=== PATIENT | male | born 1960 | race Caucasian/White ===

== ENCOUNTER → 2016-09-15 | Outpatient (REF) ==
--- NOTE | 2016-09-15 10:54 | REP ---
PARTIAL LUMBAR SPINE, THREE VIEWS: HISTORY: Degenerative disc disease. COMPARISON: 12/29/2011. There is no acute fracture. The L2-3 and L3-4 intervertebral discs are decreased in height. Vacuum phenomenon is present at the L2-3 level. These findings are consistent with disc degeneration. Osteophytes are present on L1-4. There are 3 mm of retrolisthesis of L2 on 3 and L3 on 4. There is scoliosis convex to the right. IMPRESSION: Degenerative change as described above. Signed by Kj Mireles MD 09/15/2016 10:56 A
== END ==
LOC: M SMT 10:12
PROVIDERS: ATTEND Internal Medicine
DX: M51.36 Other intervertebral disc degeneration, lumbar region (principal)

== ENCOUNTER → 2019-04-18 | Outpatient (CLI) | payer OTHER ==
--- NOTE | 2019-04-18 17:14 | REPVR ---
PROCEDURE INFORMATION: Exam: CT Maxillofacial Without Contrast, Sinus Exam date and time: 04/18/2019 4:39 PM Age: 58 years old Clinical indication: Sinusitis; Chronic; Additional info: J32.9-chronic sinusitis unspecified TECHNIQUE: Imaging protocol: CT Maxillofacial without contrast. Focus on the sinuses. Radiation optimization: All CT scans at this facility use at least one of these dose optimization techniques: automated exposure control; mA and/or kV adjustment per patient size (includes targeted exams where dose is matched to clinical indication); or iterative reconstruction. COMPARISON: No relevant prior studies available. FINDINGS: Frontal sinuses: The frontal sinuses are clear. The frontal nasal recesses are clear. Ethmoid air cells: There is minimal ethmoid sinus mucosal thickening. No air-fluid levels. Sphenoid sinuses: There is minimal mucosal thickening in the right sphenoid sinus. No air-fluid levels. Maxillary sinuses: There is mild mucosal thickening in the maxillary sinuses. Mucosal thickening involving the uncinate processes narrow the maxillary ostia bilaterally. No air-fluid levels. Orbits: Normal: Nasopharynx: The adenoids are noted to be moderately hypertrophic. Nasal cavity/Septum: The bony nasal septum is slightly deviated to the left with a nasal spur projecting slightly further to the left. Soft tissues: Unremarkable. Bones/joints: Unremarkable. IMPRESSION: 1. Mild mucosal thickening described above consistent with chronic sinusitis. 2. No evidence of acute sinusitis. Electronically signed by: Chacorta Muñoz On 04/18/2019 17:13:52 PM
== END ==
LOC: M RAD 16:07
PROVIDERS: ATTEND Family Medicine
DX: J32.9 Chronic sinusitis, unspecified (principal)

== ENCOUNTER → 2019-05-29 | Outpatient (CLI) | payer OTHER ==
--- NOTE | 2019-05-29 10:51 | REP ---
BILATERAL LOWER EXTREMITY DUPLEX DOPPLER ARTERIAL ULTRASOUND: Real-time ultrasound evaluation and duplex Doppler interrogation of bilateral lower extremity arterial systems is performed. There is no evidence of hemodynamically significant stenosis bilaterally in the lower extremity arterial systems. There are diffuse triphasic and biphasic waveforms identified with normal flow velocities. DEONTE bilaterally is 0.9. PEAK SYSTOLIC VELOCITY RIGHT LEFT Common femoral artery 103.0 cm/s 170.0 cm/s Profunda 103.0 70.1 Proximal SFA 99.7 104.0 Superficial femoral artery mid 87.2 120.0 Superficial femoral artery distal 62.6 89.2 Popliteal 49.5 62.0 Proximal anterior tibial artery 53.2 69.0 Tibioperoneal trunk 60.0 46.1 Proximal posterior tibial artery 48.7 52.8 Distal posterior tibial artery 85.1 75.7 Distal anterior tibial artery 53.3 59.8 IMPRESSION: No hemodynamically significant stenosis of bilateral lower extremity arterial systems. Electronically Signed by Killian Bateman MD 05/29/2019 03:15 P
== END ==
LOC: M RAD 09:15
PROVIDERS: ATTEND Physician Assistant
DX: I73.9 Peripheral vascular disease, unspecified (principal)

== ENCOUNTER → 2020-02-20 | Outpatient (CLI) | payer OTHER | LOC: M RAD 06:43 | PROVIDERS: ATTEND Internal Medicine Hematology & Oncology | DX: Z53.9 Procedure and treatment not carried out, unspecified reason (principal); M47.26 Other spondylosis with radiculopathy, lumbar region ==

== ENCOUNTER → 2020-03-08 | Outpatient (CLI) | payer OTHER ==
--- NOTE | 2020-03-08 11:43 | REP ---
INDICATION: SPOLNDYLOSIS WITH RADICULOPATHY. COMPARISON: Comparison lumbar spine radiographs September 15, 2016.. TECHNIQUE: Sagittal and axial T1 and T2-weighted scans are acquired in the usual fashion with and without fat saturation. Sequences include spin echo, turbo spin-echo, and STIR imaging sequences. FINDINGS: A normal caliber aorta is seen. The right kidney is not visible. No other extra vertebral abnormality is observed. Cortical and medullary bone signal intensity are normal. There are some reactive marrow changes on either side of the degenerated L2-3 disc. There is a degenerative retrolisthesis of L2 posterior with respect to L3, 3.6 mm. There is diffuse disc bulging and some osteophytic ridging at the L2-3 disc which indents the ventral margin of the thecal sac. No spinal stenosis is seen. No neural foraminal encroachment. The L1-2 disc shows degenerative narrowing and minimal diffuse disc bulging. No other finding at L1-2. At L3-4 there is degenerative disc narrowing. Minimal diffuse disc bulging is present. No spinal stenosis or neural foraminal narrowing is seen. The L4-5 disc level is remarkable only for mild facet hypertrophy bilaterally. No neural foraminal narrowing due, disc herniation, or spinal stenosis is seen. At L5-S1, there is also mild osteoarthritic facet hypertrophy. No other finding is seen. IMPRESSION: The right kidney is surgically absent. There is degenerative disc disease most pronounced at L2-3 where there is a 3.6 mm degenerative retrolisthesis. Osteoarthritic facet changes are noted at L4-5 and L5-S1 bilaterally. Otherwise negative. <Electronically signed by Eris Kern > 03/08/20 [id number]
== END ==
LOC: M RAD 10:20
PROVIDERS: ATTEND Internal Medicine Hematology & Oncology
DX: M47.26 Other spondylosis with radiculopathy, lumbar region (principal); M51.16 Intervertebral disc disorders with radiculopathy, lumbar region; Z90.5 Acquired absence of kidney

== ENCOUNTER → 2020-06-03 | Outpatient (CLI) | payer OTHER ==
--- NOTE | 2020-06-08 05:43 | ECWPNPC ---
PATIENT NAME: ROMANA CANTU : 1960 GENDER: MALE VISIT DATE: 06/03/2020 DISCHARGE DATE: 06/03/20 1348 VISIT LOCKED DATE TIME: PHYSICIAN: RAPHAEL GRANADO RESOURCE: RAPHAEL GRANADO REASON FOR APPOINTMENT 1. LOW BACK PAIN HISTORY OF PRESENT ILLNESS DEPRESSION SCREENING: PHQ-2 (2015 EDITION) LITTLE INTEREST OR PLEASURE IN DOING THINGS?NOT AT ALL FEELING DOWN, DEPRESSED, OR HOPELESS?NOT AT ALL TOTAL SCORE0 GENERAL: 59-YEAR-OLD GENTLEMAN BEING REFERRED BY [facility] FOR EVALUATION OF CHRONIC LOW BACK PAIN REFRACTORY TO TREATMENT. HE WAS SENT HERE TO BE EVALUATED FOR INJECTIONS IN HIS LOWER BACK. STATES THAT APPROXIMATELY 10 YEARS AGO OR 2008 OR 2009 HE HAD STEROID INJECTIONS INTO HIS LOWER BACK AND HAD SIGNIFICANT SWELLING WHERE THEY INJECTED AND STATES HE HAD A HEART ATTACK. INFORMED HIM THAT IN ORDER TO CONSIDER INTERVENTIONAL THERAPY HE WAS REFERRED FOR WE WOULD NEED AN ALLERGY EVALUATION FOR STEROID MEDICINE WELL LOCAL NUMBING PRODUCTS THAT WE USE FOR INJECTIONS. HE WOULD ALSO NEED TO STOP PLAVIX FOR 7 DAYS BEFORE PROCEDURE THAT WOULD REQUIRE A MEDICAL CLEARANCE EVERY TIME HE WOULD DO INJECTION THERAPY. STATES THAT HE HAD CHIROPRACTIC INTERVENTION WITHOUT IMPROVEMENT. STATES HE HAD PHYSICAL THERAPY WITHOUT IMPROVEMENT. REPORTING SEVERE DAILY LOW BACK PAIN AND SHOOTING PAINS IN HIS LEGS. STATES HE HAD A STENT FOR CIRCULATION PLACED IN HIS RIGHT LEG. ALSO REPORTS THAT THAT HE HAS A STENT IN HIS HEART. HAS ONE KIDNEY. DENIES BOWEL OR BLADDER INCONTINENCE. DENIES SADDLE PARESTHESIAS. MRI OF LUMBAR SPINE DATED 2017 IS REVIEWED. RECENT X-RAY IMAGING IS REVIEWED. PATIENT STATES THAT HE DOES NOT WANT TO USE THE CO IN [place]. WE TALKED ABOUT THE POTENTIAL RISKS INVOLVED WITH INJECTION THERAPY. OUR RECOMMENDATION WOULD BE FOR THE CO TO EVALUATE FOR ALLERGIES USED DURING INTERVENTIONAL THERAPY I.E. LOCAL NUMBING AGENT AND STEROID MEDICATION. - - -. FALL RISK SCREENING: SCREENING FALL LAST YEAR DID NOT GO TO THE ER. JUST STANDING CAN CASUING HIS LEG TO GIVE OUT. PAIN SCREENING: PATIENT HAS A COMPLAINT OF ACUTE OR CHRONIC PAIN :YES LOCATION OF PAIN:LOW BACK INTENSITY OF PAIN (SCALE OF 1 TO 10):8 WHAT DOES YOUR PAIN FEEL LIKE:STABBING, THROBBING, SHOOTING DURATION:CONTINOUS, CONSTANT, ALL DAY PAIN IS INCREASED BY:ACTIVITIES, PROLONGED STANDING PAIN IS DECREASED BY:OTHERS HEAT NURSING NOTE: - - -. PAIN CENTER INTAKE QUESTIONS: DO YOU HAVE A HISTORY OF MRSA? :NO DO YOU TAKE A BLOOD THINNERS? :NO DO YOU HAVE ANY BLEEDING DISORDERS? :NO BLEED A LITTEL WHEN HE CUT HIM SELF.. TAKES A LONG TIME TO HEAL ANY NEW NUMBNESS OR WEAKNESS IN YOUR LEGS OR ARMS? :YES WHEN SLEEPING THERE IS NUMBESS IN ARMS AND LEGS ANY PACEMAKER,DEFIBRILLATOR, OR DORSAL COLUMN STIMULATOR? :NO DO YOU HAVE ANY RASHES OR OPEN SORES? :NO ARE YOU ALLERGIC TO IV DYE? :NO ARE YOU DIABETIC? :NO ANY NEW PROBLEMS WITH YOUR MEDICATIONS? :NO HAVE YOU RECEIVED A VACCINE IN THE PAST 30 DAYS? :NO DO YOU PLAN TO RECEIVE A VACCINE IN THE NEXT 21 DAYS? :YES IF SO WHAT VACCINE AND WHEN? [facility] COVID 06/15/2020 DO YOU NEED ANY PRESCRIPTION? :NO DO YOU TAKE ANY IMMUNOSUPPRESSIVE MEDICATIONS? :NO CURRENT MEDICATIONS TAKING ATENOLOL 50 MG TABLET 1 TABLET ORALLY ONCE A DAY TAKING ATORVASTATIN CALCIUM 80 MG TABLET 1 TABLET ORALLY ONCE A DAY TAKING BUDESONIDE-FORMOTEROL FUMARATE 80-4.5 MCG/ACT AEROSOL 2 PUFFS INHALATION ONCE A DAY TAKING CLOPIDOGREL BISULFATE 75 MG TABLET 1 TABLET ORALLY ONCE A DAY TAKING CYCLOSPORINE 0.05 % EMULSION 1 DROP INTO AFFECTED EYE OPHTHALMIC TWICE A DAY TAKING DICLOFENAC SODIUM 1 % GEL DIRECTED EXTERNALLY TAKING DULOXETINE HCL 60 MG CAPSULE DELAYED RELEASE PARTICLES 1 CAPSULE ORALLY ONCE A DAY TAKING FLUTICASONE PROPIONATE 50 MCG/ACT SUSPENSION 1 SPRAY IN EACH NOSTRIL NASALLY ONCE A DAY TAKING GABAPENTIN 600 MG TABLET 1 TABLET ORALLY ONCE A DAY TAKING HYDROCODONE-ACETAMINOPHEN 5-325 MG TABLET 1 TABLET NEEDED ORALLY EVERY 6 HRS TAKING LEVOTHYROXINE SODIUM 150 MCG TABLET 1 TABLET IN THE MORNING ON AN EMPTY STOMACH ORALLY ONCE A DAY TAKING LISINOPRIL 30 MG TABLET 1 TABLET ORALLY ONCE A DAY TAKING MAGNESIUM 400 MG CAPSULE DIRECTED ORALLY TAKING MELOXICAM 15 MG TABLET 1 TABLET ORALLY ONCE A DAY TAKING NICOTINE POLACRILEX 2 MG GUM 1 PIECE FOR 30 MINUTE NEEDED MOUTH/THROAT 24 TIME(S) A DAY TAKING PANTOPRAZOLE SODIUM 40 MG TABLET DELAYED RELEASE 1 TABLET ORALLY ONCE A DAY TAKING RIBOFLAVIN 100 MG TABLET 1 TABLET ORALLY ONCE A DAY TAKING SILDENAFIL CITRATE 100 MG TABLET 1 TABLET NEEDED ORALLY ONCE A DAY TAKING TIZANIDINE HCL 2 MG TABLET 1 TABLET NEEDED ORALLY THREE TIMES A DAY TAKING KETOTIFEN FUMARATE 0.025 % SOLUTION 1 DROP INTO AFFECTED EYE OPHTHALMIC TWICE A DAY NOT-TAKING LEVOTHYROXINE SODIUM 175 MCG TABLET 1 TABLET IN THE MORNING ON AN EMPTY STOMACH ORALLY ONCE A DAY NOT-TAKING TRAZODONE HCL 100 MG TABLET 1 TABLET AT BEDTIME ORALLY ONCE A DAY NOT-TAKING TROSPIUM CHLORIDE 20 MG TABLET 1 TABLET AT BEDTIME ON AN EMPTY STOMACH ORALLY ONCE A DAY MEDICATION LIST REVIEWED AND RECONCILED WITH THE PATIENT PAST MEDICAL HISTORY JOINT PAIN IN LEFT LEG CEVICALGIA HYPERLIPIDEMIA GENERALIZED ANXIETY LOW BACK PAIN CORONARY ARTERY DISEASE EDENTULOUS HYPOTHYROIDISM NEPHRECTOMY SCOLIOSIS CYST RENAL THROMBOCYTOPENIA SLEEP DISORDER HYPERTENSION DYSPENA HEADACHE ANXIETY POLYARTHRALGIA CHEST PAIN ANEMIA 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 GASTROESOPHAGEAL REFLUX DISEASE CHRONIC OBSTRUCTIVE PULMONARY DIEASE DEPRESSION ALLERGIES CHANTIX: NAUSEA/VOMITING SURGICAL HISTORY S/P CARDIC CATH AND STENTING 2006 COLONOSCOPY 2016 LEFT OPEN PARTIAL NEPHRECTOMY 2014 RIGHT NEPHRECTOMY AGE 1 RIGHT ILAC ARTERY STENTING 2019 FLEXIBLE RHINOSCOPY 2019 FAMILY HISTORY FATHER: MOTHER: SIBLINGS: ALIVE SON(S): ALIVE 1 BROTHER(S) - HEALTHY. 1 SON(S) , 3 DAUGHTER(S) - HEALTHY. SOCIAL HISTORY GENERAL: TOBACCO USE ARE YOU A:CURRENT SMOKER ARE YOU INTERESTED IN QUITTING?NOT READY TO QUIT COUNSELED THE PATIENT ON SMOKING EFFECTS, EDUCATION [id number]/05/2021 HOW MANY CIGARETTES A DAY DO YOU SMOKE?5 OR LESS LATEX QUESTIONNAIRE LATEX ALLERGY : HAVE YOU EVER DEVELOPED ANY TYPE OF REACTION AFTER HANDLING LATEX PRODUCTS SUCH RUBBER GLOVES, CONDOMS, DIAPHRAGMS, BALLOONS, SOCKS, OR UNDERWEAR?NO LATEX ALLERGY : HAVE YOU EVER DEVELOPED ANY TYPE OF REACTION DURING OR AFTER DENTAL APPOINTMENT, VAGINAL/RECTAL EXAMINATION, SURGICAL PROCEDURE, OR ANY OTHER EXPOSURE?NO LATEX RISK : HAVE YOU EVER HAD ANY DIFFICULTY BREATHING OR HIVES AFTER EATING OR HANDLING ANY FRUITS, OR VEGETABLES; SUCH KIWI, BANANAS, STONE FRUITS, OR CHESTNUTSNO LATEX RISK : DO YOU HAVE A PREVIOUS PERSONAL HISTORY OF MORE THAN NINE SURGERIES, SPINA BIFIDA, OR REPEATED CATHERIZATIONS? NO LATEX RISK : ARE YOU FREQUENTLY EXPOSED TO LATEX PRODUCTS IN YOUR OCCUPATION?NO DATE ASKED : 06/03/2020 ALCOHOL USE: NO. RECREATIONAL DRUG USE DRUG USE?NO LANGUAGE LANGUAGES SPOKEN:MAORI LEARNING BARRIERS / SPECIAL NEEDS CHANGE FROM LAST VISIT?YES BARRIERS TO LEARNING?NO HEARING IMPAIRED?YES :HEARING AIDES VISION IMPAIRED?YES :CORRECTIVE LENSES COGNITIVELY IMPAIRED?NO READINESS TO LEARN?YES LEARNING PREFERENCES?NO LEARNING CAPABILITIES PRESENT?YES EMOTIONAL BARRIERS?NO SPECIAL DEVICES?YES :CANE, WALKER NEEDED ANALYTICAL CONSULTANT NEEDED?NO DOMESTIC VIOLENCE DO YOU FEEL SAFE IN YOUR ENVIRONMENT?YES HOSPITALIZATION/MAJOR DIAGNOSTIC PROCEDURE NO HOSPITALIZATION HISTORY. REVIEW OF SYSTEMS CONSTITUTIONAL: ANY RECENT FEVER NO . CHILLS NO . WEIGHT CHANGE OF UNKNOWN REASONS NO . GASTROENTEROLOGY: NEW UNEXPLAINABLE CHANGES IN BOWEL CONTROL NO . CONSTIPATION NO . GENITOURINARY: ANY NEW CHANGE IN BLADDER CONTROL? NO . NEUROLOGY: NEW ONSET DIZZINESS OR NEUROLOGICAL CHANGES NOT MENTIONED NO . NEW NUMBNESS OR PAIN PATTERNS NOT MENTIONED AND PERTINENT TO TODAY'S VISIT NO . CARDIOLOGY: NEW CHEST PRESSURE NO . PATIENT DENIES NO . RESPIRATORY: UNEXPLAINABLE COUGH NO . NEW SHORTNESS OF BREATH NO . VITAL SIGNS WT 187 LBS, HT 5'9, BMI 36.52 INDEX, BP 118/68 MM HG, HR 55 /MIN, RR 18 /MIN, TEMP 97.2 F, OXYGEN SAT % 97%, SAFE IN ENV? (Y/N) YEST.JR LITTLE. EXAMINATION GENERAL EXAMINATION: GENERALNO ACUTE DISTRESS, WELL NOURISHED AND HYDRATED. PSYCHAPPROPRIATE MOOD AND AFFECT . NECK:NO LYMPHADENOPATHY, SUPPLE. LUNGS:CLEAR TO AUSCULTATION BILATERALLY, NO WHEEZES, RHONCHI, RALES. HEART:NO MURMURS, REGULAR RATE AND RHYTHM. ABDOMEN: OBESE,PROTUBERANT. MUSCULOSKELETAL: MUSCLE STRENGTH TESTING 5/5 BILATERAL UPPER/LOWER EXTREMITIES. LUMBAR:TENDERNESS THROUGHOUT ENTIRE SPINE AND PARASPINALS . ASSESSMENTS OTHER CHRONIC PAIN - G89.29 LUMBAGO WITH SCIATICA, RIGHT SIDE - M54.41 LUMBAGO WITH SCIATICA, LEFT SIDE - M54.42 TREATMENT OTHERS NOTES: RECOMMENDATIONS TO [facility]: CONTINUE CURRENT CHRONIC PAIN MEDICATION. CONSIDER ALLERGY CONSULTATION IF PATIENT WOULD LIKE TO PURSUE INTERVENTIONAL THERAPY TO INCLUDE STEROID INJECTIONS. PATIENT WILL CALL IF FOLLOW-UP IS NECESSARY. PROCEDURE CODES FA211 ESTABILISHED PATIENT [facility] CHARGE DISPOSITION & COMMUNICATION FOLLOW UP PATIENT WILL CALL IF FOLLOW-UP NECESSARY (REASON: RECOMMENDATIONS TO [facility] WERE MADE) ELECTRONICALLY SIGNED BY YEVGENIY DUNNE ON 06/07/2020 AT 08:41 AM EDT DISCLAIMER : THIS IS A VISIT SUMMARY EXTRACTED FROM THE [employer] CHART. IT IS NOT A COPY OF THE [employer] PROGRESS NOTE. MYRIAMD
== END ==
LOC: M PAIN 13:00
PROVIDERS: ATTEND Nurse Practitioner Family
DX: G89.29 Other chronic pain (principal); M54.41 Lumbago with sciatica, right side; M54.42 Lumbago with sciatica, left side; E78.5 Hyperlipidemia, unspecified; F41.1 Generalized anxiety disorder; I25.10 Atherosclerotic heart disease of native coronary artery without angina pectoris; E03.9 Hypothyroidism, unspecified; I10 Essential (primary) hypertension; D64.9 Anemia, unspecified; K21.9 Gastro-esophageal reflux disease without esophagitis; J44.9 Chronic obstructive pulmonary disease, unspecified; I73.9 Peripheral vascular disease, unspecified; F32.9 Major depressive disorder, single episode, unspecified; F17.210 Nicotine dependence, cigarettes, uncomplicated; Z79.891 Long term (current) use of opiate analgesic; Z79.899 Other long term (current) drug therapy; Z79.02 Long term (current) use of antithrombotics/antiplatelets

== ENCOUNTER → 2020-07-15 | Outpatient (CLI) | payer OTHER ==
--- NOTE | 2020-07-16 03:07 | REP ---
INDICATION: NICOTINE DEPENDENCE COMPARISON: 07/11/2018 TECHNIQUE: Axial noncontrast images from the thoracic inlet to the upper abdomen using low-dose lung screening technique (LDCT). FINDINGS: The lung reece are well aerated and demonstrate chronic peribronchial thickening primarily involving the right middle lobe and lingula along with small subtle areas of somewhat nodular airspace disease involving the lingula, medial basilar right upper lobe, and to a lesser extent the remainder of the lung reece. Small nodular opacity within the medial right upper lobe measure up to approximately 9.5 mm. While these findings likely represent acute/resolving infectious process, less likely malignant pathology cannot be excluded. No effusion. No pneumothorax. Tracheobronchial tree is patent. Few mildly prominent mediastinal lymph nodes along with thyromegaly suggested. IMPRESSION: Relatively new findings as described above. Findings likely favor an acute or resolving infectious process and less likely malignancy. However, short-term 3 month contrast-enhanced chest CT should be considered for further investigation. <Electronically signed by Kwabena Martinez > 07/16/20 0300
== END ==
LOC: M RAD 11:03
PROVIDERS: ATTEND Physician Assistant
DX: Z12.2 Encounter for screening for malignant neoplasm of respiratory organs (principal); F17.210 Nicotine dependence, cigarettes, uncomplicated; R91.8 Other nonspecific abnormal finding of lung field

== ENCOUNTER → 2020-08-26 | Outpatient (CLI) | payer OTHER ==
--- NOTE | 2020-08-27 11:50 | REP ---
INDICATION: LUNG NODULE. COMPARISON: Comparison chest CT studies are from July 11, 2018 and July 15, 2020.. TECHNIQUE: Forty-nine minutes following the intravenous injection of a 8.66 mCi dose of F-18 FDG, three-dimensional PET scintigraphy is acquired from the skull base to the proximal thighs. Triplanar noncontrast CT scanning is acquired through the same anatomic range for attenuation correction, and image registration with scan parameters optimized to minimize radiation exposure to the patient. PET scintigraphy and CT datasets were fused and displayed on a workstation with multiplanar and projection display capability. FINDINGS: There is diffuse symmetrical uptake in the thyroid gland. The thyroid gland appears symmetrically enlarged. Findings are compatible with thyroiditis. Maximum standard uptake value 4.55. There is no abnormal pulmonary parenchymal hypermetabolic uptake. The nodular density seen in the right upper lobe anteriorly have improved considered bili morphologically. No abnormal uptake is seen. This is compatible with inflammatory changes. There is no observable significant pulmonary nodule or abnormal pulmonary parenchymal uptake. No hilar or mediastinal hypermetabolic uptake is seen. No pleural uptake is appreciated. In the abdomen and pelvis, normal hepatic, splenic, gastrointestinal, and genitourinary FDG accumulation is appreciated. No abnormal hypermetabolic uptake is seen in the abdomen or pelvis. The right kidney is absent. No abnormal hypermetabolic uptake is seen in the abdomen or pelvis. There is a right-sided external iliac arterial stent. IMPRESSION: No abnormal hypermetabolic uptake seen in the chest. The recently identified right upper lobe nodules have improved significantly consistent with inflammatory change. There is diffuse symmetric uptake in the enlarged thyroid gland consistent with thyroiditis. Otherwise negative. <Electronically signed by Eris Kern > 08/27/20 [id number]
== END ==
LOC: M PLARAD 14:34
PROVIDERS: ATTEND Physician Assistant
DX: R91.1 Solitary pulmonary nodule (principal)
CPT/HCPCS: 78815; A9552

== ENCOUNTER → 2020-09-04 | Outpatient (CLI) | payer OTHER ==
--- NOTE | 2020-09-06 00:06 | ECWPNPC ---
PATIENT NAME: ROMANA CANTU : 1960 GENDER: MALE VISIT DATE: 09/04/2020 DISCHARGE DATE: 09/04/20 1121 VISIT LOCKED DATE TIME: PHYSICIAN: RAPHAEL GRANADO RESOURCE: RAPHAEL GRANADO REASON FOR APPOINTMENT 1. LOW BACK PAIN HISTORY OF PRESENT ILLNESS GENERAL: HERE FOR FOLLOW-UP OF CHRONIC LOW BACK PAIN WITH A HISTORY OF MULTIPLE COMORBIDITIES. CURRENTLY BEING EVALUATED BY PULMONARY FOR" A SPOT ON HIS LUNG". AT HIS INITIAL VISIT 3 MONTHS AGO I RECOMMENDED THAT HE REQUEST [place] FROM [place] DUE TO HIS REPORT OF SEVERE LOCAL REACTION AFTER [facility]ID[facility] ST[facility] [facility] [facility] [place]. PATIENT IS INTERESTED IN DORSAL COLUMN STIMULATOR TRIAL. I DID GIVE HIM INFORMATION ON THIS TODAY BUT TOLD HIM THAT DR. TELLES WOULD WANT TO TRY SOME PROCEDURES FIRST BEFORE CONSIDERING A DORSAL COLUMN STIMULATOR. I WOULD BE WILLING TO SEND HIM FOR ALLERGY TESTING IN REGARDS TO LOCAL ANESTHETIC AND STEROIDS DUE TO HIS LOCAL REACTION BUT I AM NOT SURE ON WHAT THEY USED IN THE PROCEDURE. THEREFORE WE WILL HAVE HIM SIGN A RECORDS RELEASE TODAY AND HOPEFULLY GET SOME INFORMATION. AFTER THAT WE COULD CONSIDER SENDING HIM FOR ALLERGY EVALUATION. -. FALL RISK SCREENING: SCREENING 4 FALLS THIS YEAR DID NOT GO THE ER , NO MAJOR INJURIES. PAIN SCREENING: PATIENT HAS A COMPLAINT OF ACUTE OR CHRONIC PAIN :YES LOCATION OF PAIN:LOW BACK INTENSITY OF PAIN (SCALE OF 1 TO 10):9 WHAT DOES YOUR PAIN FEEL LIKE:ACHING, BURNING, THROBBING, SORE, SHOOTING DURATION:INTERMITTENT PAIN IS INCREASED BY:ACTIVITIES PAIN IS DECREASED BY:OTHERS HEATING PAD NURSING NOTE: -. PAIN CENTER INTAKE QUESTIONS: DO YOU HAVE A HISTORY OF MRSA? :NO DO YOU TAKE A BLOOD THINNERS? :NO DO YOU HAVE ANY BLEEDING DISORDERS? :NO BLEED A LITTEL WHEN HE CUT HIM SELF.. TAKES A LONG TIME TO HEAL ANY NEW NUMBNESS OR WEAKNESS IN YOUR LEGS OR ARMS? :YES WHEN SLEEPING THERE IS NUMBESS IN ARMS AND LEGS ANY PACEMAKER,DEFIBRILLATOR, OR DORSAL COLUMN STIMULATOR? :NO DO YOU HAVE ANY RASHES OR OPEN SORES? :NO ARE YOU ALLERGIC TO IV DYE? :NO ARE YOU DIABETIC? :NO ANY NEW PROBLEMS WITH YOUR MEDICATIONS? :NO HAVE YOU RECEIVED A VACCINE IN THE PAST 30 DAYS? :NO DO YOU PLAN TO RECEIVE A VACCINE IN THE NEXT 21 DAYS? :YES IF SO WHAT VACCINE AND WHEN? 1ST COVID 06/15/2020 DO YOU NEED ANY PRESCRIPTION? :NO DO YOU TAKE ANY IMMUNOSUPPRESSIVE MEDICATIONS? :NO CURRENT MEDICATIONS TAKING ATENOLOL 50 MG TABLET 1 TABLET ORALLY ONCE A DAY TAKING ATORVASTATIN CALCIUM 80 MG TABLET 1 TABLET ORALLY ONCE A DAY TAKING BUDESONIDE-FORMOTEROL FUMARATE 80-4.5 MCG/ACT AEROSOL 2 PUFFS INHALATION ONCE A DAY TAKING CLOPIDOGREL BISULFATE 75 MG TABLET 1 TABLET ORALLY ONCE A DAY TAKING CYCLOSPORINE 0.05 % EMULSION 1 DROP INTO AFFECTED EYE OPHTHALMIC TWICE A DAY TAKING DICLOFENAC SODIUM 1 % GEL DIRECTED EXTERNALLY TAKING DULOXETINE HCL 60 MG CAPSULE DELAYED RELEASE PARTICLES 1 CAPSULE ORALLY ONCE A DAY TAKING FLUTICASONE PROPIONATE 50 MCG/ACT SUSPENSION 1 SPRAY IN EACH NOSTRIL NASALLY ONCE A DAY TAKING GABAPENTIN 600 MG TABLET 1 TABLET ORALLY ONCE A DAY TAKING HYDROCODONE-ACETAMINOPHEN 5-325 MG TABLET 1 TABLET NEEDED ORALLY EVERY 6 HRS TAKING LEVOTHYROXINE SODIUM 150 MCG TABLET 1 TABLET IN THE MORNING ON AN EMPTY STOMACH ORALLY ONCE A DAY TAKING LISINOPRIL 30 MG TABLET 1 TABLET ORALLY ONCE A DAY TAKING MAGNESIUM 400 MG CAPSULE DIRECTED ORALLY TAKING MELOXICAM 15 MG TABLET 1 TABLET ORALLY ONCE A DAY TAKING NICOTINE POLACRILEX 2 MG GUM 1 PIECE FOR 30 MINUTE NEEDED MOUTH/THROAT 24 TIME(S) A DAY TAKING PANTOPRAZOLE SODIUM 40 MG TABLET DELAYED RELEASE 1 TABLET ORALLY ONCE A DAY TAKING RIBOFLAVIN 100 MG TABLET 1 TABLET ORALLY ONCE A DAY TAKING SILDENAFIL CITRATE 100 MG TABLET 1 TABLET NEEDED ORALLY ONCE A DAY TAKING TIZANIDINE HCL 2 MG TABLET 1 TABLET NEEDED ORALLY THREE TIMES A DAY TAKING KETOTIFEN FUMARATE 0.025 % SOLUTION 1 DROP INTO AFFECTED EYE OPHTHALMIC TWICE A DAY TAKING ASPIR-LOW 81 MG TABLET DELAYED RELEASE 1 TABLET ORALLY ONCE A DAY NOT-TAKING LEVOTHYROXINE SODIUM 175 MCG TABLET 1 TABLET IN THE MORNING ON AN EMPTY STOMACH ORALLY ONCE A DAY NOT-TAKING TRAZODONE HCL 100 MG TABLET 1 TABLET AT BEDTIME ORALLY ONCE A DAY NOT-TAKING TROSPIUM CHLORIDE 20 MG TABLET 1 TABLET AT BEDTIME ON AN EMPTY STOMACH ORALLY ONCE A DAY MEDICATION LIST REVIEWED AND RECONCILED WITH THE PATIENT PAST MEDICAL HISTORY JOINT PAIN IN LEFT LEG CEVICALGIA HYPERLIPIDEMIA GENERALIZED ANXIETY LOW BACK PAIN CORONARY ARTERY DISEASE EDENTULOUS HYPOTHYROIDISM NEPHRECTOMY SCOLIOSIS CYST RENAL THROMBOCYTOPENIA SLEEP DISORDER HYPERTENSION DYSPENA HEADACHE ANXIETY POLYARTHRALGIA CHEST PAIN ANEMIA 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 GASTROESOPHAGEAL REFLUX DISEASE CHRONIC OBSTRUCTIVE PULMONARY DIEASE DEPRESSION 4 FALLS THIS YEAR DID NOT GO THE ER , NO MAJOR INJURIES 1ST COVID SHOT 06/15/2020 2ND: 07/13/2020 ALLERGIES CHANTIX: NAUSEA/VOMITING SURGICAL HISTORY S/P CARDIC CATH AND STENTING 2006 COLONOSCOPY 2016 LEFT OPEN PARTIAL NEPHRECTOMY 2014 RIGHT NEPHRECTOMY AGE 1 RIGHT ILAC ARTERY STENTING 2019 FLEXIBLE RHINOSCOPY 2019 SOCIAL HISTORY GENERAL: TOBACCO USE ARE YOU A:CURRENT SMOKER ARE YOU INTERESTED IN QUITTING?READY TO QUIT COUNSELED THE PATIENT ON TOBACCO USE, CESSATION [id number]/07/2021 HOW MANY CIGARETTES A DAY DO YOU SMOKE?5 OR LESS LATEX QUESTIONNAIRE LATEX ALLERGY : HAVE YOU EVER DEVELOPED ANY TYPE OF REACTION AFTER HANDLING LATEX PRODUCTS SUCH RUBBER GLOVES, CONDOMS, DIAPHRAGMS, BALLOONS, SOCKS, OR UNDERWEAR?NO LATEX ALLERGY : HAVE YOU EVER DEVELOPED ANY TYPE OF REACTION DURING OR AFTER DENTAL APPOINTMENT, VAGINAL/RECTAL EXAMINATION, SURGICAL PROCEDURE, OR ANY OTHER EXPOSURE?NO LATEX RISK : HAVE YOU EVER HAD ANY DIFFICULTY BREATHING OR HIVES AFTER EATING OR HANDLING ANY FRUITS, OR VEGETABLES; SUCH KIWI, BANANAS, STONE FRUITS, OR CHESTNUTSNO LATEX RISK : DO YOU HAVE A PREVIOUS PERSONAL HISTORY OF MORE THAN NINE SURGERIES, SPINA BIFIDA, OR REPEATED CATHERIZATIONS? NO LATEX RISK : ARE YOU FREQUENTLY EXPOSED TO LATEX PRODUCTS IN YOUR OCCUPATION?NO DATE ASKED : 09/04/2020 ALCOHOL USE: NO. RECREATIONAL DRUG USE DRUG USE?NO LANGUAGE LANGUAGES SPOKEN:MOZAMBICAN LEARNING BARRIERS / SPECIAL NEEDS CHANGE FROM LAST VISIT?YES BARRIERS TO LEARNING?NO HEARING IMPAIRED?YES :HEARING AIDES VISION IMPAIRED?YES :CORRECTIVE LENSES COGNITIVELY IMPAIRED?NO READINESS TO LEARN?YES LEARNING PREFERENCES?NO LEARNING CAPABILITIES PRESENT?YES EMOTIONAL BARRIERS?NO SPECIAL DEVICES?YES :CANE, WALKER NEEDED SQL ENGINEER NEEDED?NO DOMESTIC VIOLENCE DO YOU FEEL SAFE IN YOUR ENVIRONMENT?YES REVIEW OF SYSTEMS CONSTITUTIONAL: ANY RECENT FEVER NO . CHILLS NO . WEIGHT CHANGE OF UNKNOWN REASONS NO . GASTROENTEROLOGY: NEW UNEXPLAINABLE CHANGES IN BOWEL CONTROL NO . CONSTIPATION NO . GENITOURINARY: ANY NEW CHANGE IN BLADDER CONTROL? NO . NEUROLOGY: NEW ONSET DIZZINESS OR NEUROLOGICAL CHANGES NOT MENTIONED NO . NEW NUMBNESS OR PAIN PATTERNS NOT MENTIONED AND PERTINENT TO TODAY'S VISIT NO . CARDIOLOGY: NEW CHEST PRESSURE NO . PATIENT DENIES NO . RESPIRATORY: UNEXPLAINABLE COUGH NO . NEW SHORTNESS OF BREATH NO . VITAL SIGNS WT 182.6 LBS, HT 5'9, BMI 35.66 INDEX, BP 99/51 MM HG, HR 59 /MIN, RR 18 /MIN, TEMP 98.0 F, OXYGEN SAT % 97%, SAFE IN ENV? (Y/N) YES, NA INITIALS AW [id number].JR LITTLE. EXAMINATION GENERAL EXAMINATION: GENERALAWAKE,ALERT ,PLEASANT . PSYCHAFFECT NORMAL . LUNGS:LUNG SIU ARE CLEAR TO AUSCULTATION BILATERALLY. GOOD MOVEMENT OF AIR . HEART:S1, S2 IN A REGULAR RATE AND RHYTHM. NO SIGNIFICANT MURMURS, RUBS OR GALLOPS NOTED . ASSESSMENTS LUMBAGO WITH SCIATICA, RIGHT SIDE - M54.41 (PRIMARY) LUMBAGO WITH SCIATICA, LEFT SIDE - M54.42 TREATMENT LUMBAGO WITH SCIATICA, RIGHT SIDE NOTES: TODAY WE WILL HAVE PATIENT SIGN A RECORDS RELEASE FOR [facility] LUM[facility] EPIDURAL STEROID INJECTIONS DONE AROUND 2008. ONCE THIS INFORMATION IS OBTAINED WE COULD SEND HIM FOR A ALLERGY EVALUATION BASED ON WHAT THEY USED DURING THE PROCEDURE. WE COULD CONSIDER TRYING DIFFERENT PROCEDURES TO HELP WITH HIS CHRONIC PAIN. POSSIBLY CONSIDER DORSAL COLUMN STIMULATOR TRIAL. PROCEDURE CODES FA211 ESTABILISHED PATIENT [facility] CHARGE DISPOSITION & COMMUNICATION FOLLOW UP 2 MONTHS (REASON: REVIEWED [place] NOTES AND CONSIDER ALLERGY REFERRAL) ELECTRONICALLY SIGNED BY YEVGENIY DUNNE ON 09/05/2020 AT 01:38 PM EDT DISCLAIMER : THIS IS A VISIT SUMMARY EXTRACTED FROM THE [employer] CHART. IT IS NOT A COPY OF THE [employer] PROGRESS NOTE. ESE
== END ==
LOC: M PAIN 10:15
PROVIDERS: ATTEND Nurse Practitioner Family
DX: M54.41 Lumbago with sciatica, right side (principal); M54.42 Lumbago with sciatica, left side; E75.5 Other lipid storage disorders; F41.1 Generalized anxiety disorder; I25.10 Atherosclerotic heart disease of native coronary artery without angina pectoris; E03.9 Hypothyroidism, unspecified; D69.6 Thrombocytopenia, unspecified; I10 Essential (primary) hypertension; D64.9 Anemia, unspecified; I73.9 Peripheral vascular disease, unspecified; K21.9 Gastro-esophageal reflux disease without esophagitis; J44.9 Chronic obstructive pulmonary disease, unspecified; F32.9 Major depressive disorder, single episode, unspecified; M54.2 Cervicalgia; F17.210 Nicotine dependence, cigarettes, uncomplicated; Z79.891 Long term (current) use of opiate analgesic; Z79.82 Long term (current) use of aspirin; Z79.899 Other long term (current) drug therapy; Z88.8 Allergy status to other drugs, medicaments and biological substances

== ENCOUNTER → 2020-10-31 | Outpatient (CLI) | payer OTHER ==
--- NOTE | 2020-11-01 06:35 | REP ---
INDICATION: CKD 3, RT NEPHRECTOMY COMPARISON: None TECHNIQUE: Real time spear scale ultrasound examination using curved array transducer. FINDINGS: Patient is noted to be status post right nephrectomy. Left kidney is normal in contour, size, echogenicity, and reniform shape measuring 10.2 x 7.1 x 6.2 cm. No hydronephrosis, nephrolithiasis, cystic or renal mass lesion. Bladder is unremarkable. IMPRESSION: 1. Prior right nephrectomy. 2. Normal left kidney. <Electronically signed by Kwabena Martinez > 11/01/20 0631
== END ==
LOC: M RAD 14:22
PROVIDERS: ATTEND Internal Medicine Nephrology
DX: Z90.5 Acquired absence of kidney (principal); N18.30 Chronic kidney disease, stage 3 unspecified

== ENCOUNTER → 2020-11-27 | Outpatient (REF) | payer OTHER | LOC: M LAB REF 17:44 | PROVIDERS: ATTEND Internal Medicine Nephrology | DX: E83.42 Hypomagnesemia (principal) ==

== ENCOUNTER → 2021-01-08 | Outpatient (CLI) | payer OTHER | LOC: M PAIN 14:15 | PROVIDERS: ATTEND Anesthesiology | DX: M79.18 Myalgia, other site (principal); M51.16 Intervertebral disc disorders with radiculopathy, lumbar region; M47.816 Spondylosis without myelopathy or radiculopathy, lumbar region; M54.2 Cervicalgia; E78.5 Hyperlipidemia, unspecified; F41.1 Generalized anxiety disorder; I25.10 Atherosclerotic heart disease of native coronary artery without angina pectoris; E03.9 Hypothyroidism, unspecified; I10 Essential (primary) hypertension; G47.9 Sleep disorder, unspecified; D64.9 Anemia, unspecified; I73.9 Peripheral vascular disease, unspecified; K21.9 Gastro-esophageal reflux disease without esophagitis; J44.9 Chronic obstructive pulmonary disease, unspecified; F32.A Depression, unspecified; F17.210 Nicotine dependence, cigarettes, uncomplicated; Z79.02 Long term (current) use of antithrombotics/antiplatelets; Z79.891 Long term (current) use of opiate analgesic; Z79.84 Long term (current) use of oral hypoglycemic drugs; Z79.82 Long term (current) use of aspirin; Z79.899 Other long term (current) drug therapy; Z88.8 Allergy status to other drugs, medicaments and biological substances ==

== ENCOUNTER → 2021-04-07 | Outpatient (CLI) | payer OTHER | LOC: M PLAIMG 13:54 | PROVIDERS: ATTEND Physician Assistant | DX: R91.8 Other nonspecific abnormal finding of lung field (principal); E07.9 Disorder of thyroid, unspecified ==

== ENCOUNTER → 2021-04-08 | Outpatient (REF) | payer OTHER | LOC: M LAB REF 17:10 | PROVIDERS: ATTEND Nurse Practitioner Family | DX: E83.42 Hypomagnesemia (principal) ==

== ENCOUNTER → 2021-12-19 | Outpatient (CLI) | payer OTHER ==
[~2021-12-19] MED LIST: ACET1TAB37 PO; ASPI81CH8 PO; CEFD300CAP PO; DOXY100T PO; ELIQ5TAB PO; FLOM0.4C39 PO; PRED10TA2 PO; PROAAER10 INH; SPIR1CAP INH
== END ==
LOC: M PAIN 13:45
PROVIDERS: ATTEND Anesthesiology
DX: M54.2 Cervicalgia (principal); M79.10 Myalgia, unspecified site; M79.18 Myalgia, other site; E78.5 Hyperlipidemia, unspecified; F41.1 Generalized anxiety disorder; M54.50 Low back pain, unspecified; I25.10 Atherosclerotic heart disease of native coronary artery without angina pectoris; E03.9 Hypothyroidism, unspecified; N28.1 Cyst of kidney, acquired; D69.6 Thrombocytopenia, unspecified; I10 Essential (primary) hypertension; D64.9 Anemia, unspecified; I73.9 Peripheral vascular disease, unspecified; K21.9 Gastro-esophageal reflux disease without esophagitis; J44.9 Chronic obstructive pulmonary disease, unspecified; F32.A Depression, unspecified; M41.9 Scoliosis, unspecified; G47.9 Sleep disorder, unspecified; Z95.5 Presence of coronary angioplasty implant and graft; Z90.5 Acquired absence of kidney; Z95.820 Peripheral vascular angioplasty status with implants and grafts; F17.210 Nicotine dependence, cigarettes, uncomplicated; Z79.02 Long term (current) use of antithrombotics/antiplatelets; Z79.890 Hormone replacement therapy; Z79.891 Long term (current) use of opiate analgesic; Z79.84 Long term (current) use of oral hypoglycemic drugs; Z88.8 Allergy status to other drugs, medicaments and biological substances

== ENCOUNTER → 2022-01-20 | Outpatient (CLI) | payer OTHER | LOC: M SOG 08:08 | PROVIDERS: ATTEND Orthopaedic Surgery | DX: M25.511 Pain in right shoulder (principal); M25.512 Pain in left shoulder ==

== ENCOUNTER → 2022-03-06 | Outpatient (CLI) | payer OTHER | LOC: M RAD 16:23 | PROVIDERS: ATTEND Anesthesiology | DX: M47.22 Other spondylosis with radiculopathy, cervical region (principal) ==

== ENCOUNTER → 2022-03-12 | Outpatient (CLI) | payer OTHER | LOC: M LABSMTC 09:47 | PROVIDERS: ATTEND Anesthesiology | DX: Z01.812 Encounter for preprocedural laboratory examination (principal); Z11.52 Encounter for screening for COVID-19 ==

== ENCOUNTER → 2022-03-24 | Outpatient (CLI) | payer OTHER | LOC: M SOG 08:34 | PROVIDERS: ATTEND Orthopaedic Surgery | DX: M50.322 Other cervical disc degeneration at C5-C6 level (principal) ==

== ENCOUNTER → 2022-04-05 | Outpatient (CLI) | payer OTHER | LOC: M LABSMTC 10:19 | PROVIDERS: ATTEND Anesthesiology | DX: Z01.812 Encounter for preprocedural laboratory examination (principal); Z11.52 Encounter for screening for COVID-19 ==

== ENCOUNTER → 2022-04-07 | Outpatient (CLI) | payer OTHER ==
[~2022-04-07] MED LIST changes: +BUPIVACAINE HCL 0.25% 10ML VIAL As Ordered ONE; +BUPIVACAINE HCL 0.25% 30ML VIAL As Ordered ONE; +NORCO, ANEXSIA 5/325MG TABLET (HYDROcodone/ACETAMINOPHEN) As Ordered ONE; +diazePAM 5MG TABLET As Ordered ONE
== END ==
LOC: M PAIN 10:30
PROVIDERS: ATTEND Anesthesiology
DX: M79.18 Myalgia, other site (principal); G89.29 Other chronic pain; E11.9 Type 2 diabetes mellitus without complications; G47.30 Sleep apnea, unspecified; E03.9 Hypothyroidism, unspecified; I10 Essential (primary) hypertension; K21.9 Gastro-esophageal reflux disease without esophagitis; J44.9 Chronic obstructive pulmonary disease, unspecified; I25.2 Old myocardial infarction; F17.210 Nicotine dependence, cigarettes, uncomplicated; Z86.59 Personal history of other mental and behavioral disorders; Z88.8 Allergy status to other drugs, medicaments and biological substances; Z79.84 Long term (current) use of oral hypoglycemic drugs; Z79.890 Hormone replacement therapy; Z79.899 Other long term (current) drug therapy

== ENCOUNTER → 2022-04-13 | Outpatient (CLI) | payer OTHER ==
[~2022-04-13] MED LIST changes: -BUPIVACAINE HCL 0.25% 10ML VIAL As Ordered ONE; -BUPIVACAINE HCL 0.25% 30ML VIAL As Ordered ONE; -NORCO, ANEXSIA 5/325MG TABLET (HYDROcodone/ACETAMINOPHEN) As Ordered ONE; -diazePAM 5MG TABLET As Ordered ONE
== END ==
LOC: M RAD 13:12
PROVIDERS: ATTEND Nurse Practitioner Family
DX: Z12.2 Encounter for screening for malignant neoplasm of respiratory organs (principal); F17.210 Nicotine dependence, cigarettes, uncomplicated

== ENCOUNTER → 2022-04-13 | Outpatient (CLI) | payer OTHER | LOC: M RAD 13:10 | PROVIDERS: ATTEND Orthopaedic Surgery | DX: M25.511 Pain in right shoulder (principal); M25.512 Pain in left shoulder ==

== ENCOUNTER → 2022-04-21 | Outpatient (CLI) | payer OTHER | LOC: M PAIN 10:30 | PROVIDERS: ATTEND Anesthesiology | DX: G89.29 Other chronic pain (principal); M54.2 Cervicalgia; M47.812 Spondylosis without myelopathy or radiculopathy, cervical region; M79.18 Myalgia, other site; E11.9 Type 2 diabetes mellitus without complications; G47.30 Sleep apnea, unspecified; E03.9 Hypothyroidism, unspecified; I10 Essential (primary) hypertension; K21.9 Gastro-esophageal reflux disease without esophagitis; J44.9 Chronic obstructive pulmonary disease, unspecified; I25.2 Old myocardial infarction; F17.210 Nicotine dependence, cigarettes, uncomplicated; Z86.59 Personal history of other mental and behavioral disorders; Z88.8 Allergy status to other drugs, medicaments and biological substances; Z79.84 Long term (current) use of oral hypoglycemic drugs; Z79.890 Hormone replacement therapy; Z79.899 Other long term (current) drug therapy ==

== ENCOUNTER → 2022-07-07 | Outpatient (CLI) | payer OTHER ==
[2022-07-07 18:12] LABS: FREE T4 1.38 NG/DL (0.89-1.76); THYROID STIMULATING HORMONE 0.123 uIU/ML (0.55-4.78)
== END ==
LOC: M PLALAB 16:06
PROVIDERS: ATTEND Nurse Practitioner Family
DX: E03.9 Hypothyroidism, unspecified (principal)

== ENCOUNTER → 2022-08-10 | Outpatient (CLI) | payer OTHER | LOC: M PAIN 08:00 | PROVIDERS: ATTEND Anesthesiology | DX: M79.18 Myalgia, other site (principal); M47.812 Spondylosis without myelopathy or radiculopathy, cervical region; E11.9 Type 2 diabetes mellitus without complications; E03.9 Hypothyroidism, unspecified; I10 Essential (primary) hypertension; K21.9 Gastro-esophageal reflux disease without esophagitis; J44.9 Chronic obstructive pulmonary disease, unspecified; I25.2 Old myocardial infarction; F17.290 Nicotine dependence, other tobacco product, uncomplicated; Z86.59 Personal history of other mental and behavioral disorders; Z88.8 Allergy status to other drugs, medicaments and biological substances; Z79.84 Long term (current) use of oral hypoglycemic drugs; Z79.890 Hormone replacement therapy; Z79.899 Other long term (current) drug therapy ==

== ENCOUNTER → 2022-09-28 | Outpatient (CLI) | payer OTHER | LOC: M PAIN 16:30 | PROVIDERS: ATTEND Anesthesiology | DX: M50.10 Cervical disc disorder with radiculopathy, unspecified cervical region (principal); E78.5 Hyperlipidemia, unspecified; F41.1 Generalized anxiety disorder; M54.50 Low back pain, unspecified; I25.10 Atherosclerotic heart disease of native coronary artery without angina pectoris; E03.9 Hypothyroidism, unspecified; M41.9 Scoliosis, unspecified; D69.6 Thrombocytopenia, unspecified; I10 Essential (primary) hypertension; D64.9 Anemia, unspecified; I73.9 Peripheral vascular disease, unspecified; F17.210 Nicotine dependence, cigarettes, uncomplicated; I25.2 Old myocardial infarction; Z79.84 Long term (current) use of oral hypoglycemic drugs; Z79.890 Hormone replacement therapy; Z79.899 Other long term (current) drug therapy; Z88.8 Allergy status to other drugs, medicaments and biological substances; Z79.891 Long term (current) use of opiate analgesic ==

== ENCOUNTER → 2022-10-19 | Outpatient (CLI) | payer OTHER | LOC: M PLAIMG 06:46 | PROVIDERS: ATTEND Nurse Practitioner Family | DX: R51.9 Headache, unspecified (principal) ==

== ENCOUNTER → 2022-10-20 | Outpatient (CLI) | payer OTHER | LOC: M PAIN 13:45 | PROVIDERS: ATTEND Anesthesiology | DX: M47.812 Spondylosis without myelopathy or radiculopathy, cervical region (principal); Z95.5 Presence of coronary angioplasty implant and graft; M54.2 Cervicalgia; E78.5 Hyperlipidemia, unspecified; F41.1 Generalized anxiety disorder; M54.50 Low back pain, unspecified; I25.10 Atherosclerotic heart disease of native coronary artery without angina pectoris; E03.9 Hypothyroidism, unspecified; D69.6 Thrombocytopenia, unspecified; I10 Essential (primary) hypertension; D64.9 Anemia, unspecified; I73.9 Peripheral vascular disease, unspecified; K21.9 Gastro-esophageal reflux disease without esophagitis; F32.A Depression, unspecified; I25.2 Old myocardial infarction; F17.210 Nicotine dependence, cigarettes, uncomplicated; Z79.84 Long term (current) use of oral hypoglycemic drugs; Z79.891 Long term (current) use of opiate analgesic; Z79.890 Hormone replacement therapy; Z79.899 Other long term (current) drug therapy; Z88.8 Allergy status to other drugs, medicaments and biological substances ==

== ENCOUNTER → 2022-11-16 | Outpatient (CLI) | payer OTHER ==
[2022-11-16 16:44] LABS: THYROID STIMULATING HORMONE 1.58 uIU/ML (0.55-4.78)
[2022-11-16 16:46] LABS: FREE T4 1.11 NG/DL (0.89-1.76)
== END ==
LOC: M PLALAB 14:45
PROVIDERS: ATTEND Nurse Practitioner Family
DX: E03.9 Hypothyroidism, unspecified (principal)

== ENCOUNTER → 2022-12-17 | Outpatient (CLI) | payer OTHER | LOC: M PAIN 15:00 | PROVIDERS: ATTEND Nurse Practitioner Family | DX: G89.29 Other chronic pain (principal); M47.812 Spondylosis without myelopathy or radiculopathy, cervical region; M79.10 Myalgia, unspecified site; M54.2 Cervicalgia; E78.5 Hyperlipidemia, unspecified; F41.1 Generalized anxiety disorder; M54.50 Low back pain, unspecified; I25.10 Atherosclerotic heart disease of native coronary artery without angina pectoris; E03.9 Hypothyroidism, unspecified; I10 Essential (primary) hypertension; D64.9 Anemia, unspecified; I73.9 Peripheral vascular disease, unspecified; K21.9 Gastro-esophageal reflux disease without esophagitis; J44.9 Chronic obstructive pulmonary disease, unspecified; F17.210 Nicotine dependence, cigarettes, uncomplicated; Z79.01 Long term (current) use of anticoagulants; Z79.02 Long term (current) use of antithrombotics/antiplatelets; Z79.891 Long term (current) use of opiate analgesic; Z79.890 Hormone replacement therapy; Z79.899 Other long term (current) drug therapy; Z88.8 Allergy status to other drugs, medicaments and biological substances ==

== ENCOUNTER → 2022-12-24 | Outpatient (CLI) | payer OTHER ==
[~2022-12-24] MED LIST changes: +ISOVUE-M 300 61% 15ML VIAL As Ordered ONE; +LIDOCAINE 1% SDV 30ML VIAL As Ordered ONE
== END ==
LOC: M PAIN 08:30
PROVIDERS: ATTEND Anesthesiology
DX: M47.812 Spondylosis without myelopathy or radiculopathy, cervical region (principal); E78.5 Hyperlipidemia, unspecified; F41.1 Generalized anxiety disorder; M54.50 Low back pain, unspecified; I25.10 Atherosclerotic heart disease of native coronary artery without angina pectoris; E03.9 Hypothyroidism, unspecified; D69.6 Thrombocytopenia, unspecified; I10 Essential (primary) hypertension; I73.9 Peripheral vascular disease, unspecified; K21.9 Gastro-esophageal reflux disease without esophagitis; J44.9 Chronic obstructive pulmonary disease, unspecified; F32.A Depression, unspecified; F17.210 Nicotine dependence, cigarettes, uncomplicated; Z79.01 Long term (current) use of anticoagulants; Z79.84 Long term (current) use of oral hypoglycemic drugs; Z79.890 Hormone replacement therapy; Z79.891 Long term (current) use of opiate analgesic; Z79.899 Other long term (current) drug therapy; Z88.8 Allergy status to other drugs, medicaments and biological substances
CPT/HCPCS: 64490; 64491; 64492; J0665; Q9967

== ENCOUNTER → 2023-02-02 | Outpatient (CLI) | payer OTHER ==
[~2023-02-02] MED LIST changes: -ISOVUE-M 300 61% 15ML VIAL As Ordered ONE; -LIDOCAINE 1% SDV 30ML VIAL As Ordered ONE
== END ==
LOC: M PAIN 11:30
PROVIDERS: ATTEND Nurse Practitioner Family
DX: M47.812 Spondylosis without myelopathy or radiculopathy, cervical region (principal); M50.10 Cervical disc disorder with radiculopathy, unspecified cervical region; G89.29 Other chronic pain; F17.290 Nicotine dependence, other tobacco product, uncomplicated; Z88.8 Allergy status to other drugs, medicaments and biological substances; Z79.01 Long term (current) use of anticoagulants; Z79.84 Long term (current) use of oral hypoglycemic drugs; Z79.899 Other long term (current) drug therapy

== ENCOUNTER → 2023-04-21 | Outpatient (CLI) | payer OTHER ==
[2023-04-21 13:55] LABS: HEMOGLOBIN 15.7 g/dl (13.5-17.5); MEAN CORPUSCULAR HEMOGLOBIN 29.9 pg (27.0-33.0); MEAN CORPUSCULAR HGB CONC 32.7 g/dl (32.0-36.5); MEAN CORPUSCULAR VOLUME 91.4 fl (80.0-96.0); PLATELET COUNT, AUTOMATED 161 10^3/uL (150-450); RED BLOOD COUNT 5.25 10^6/uL (4.30-6.10); WHITE BLOOD COUNT 7.4 10^3/uL (4.0-10.0)
[2023-04-21 14:14] LABS: ALBUMIN 3.6 G/DL (3.2-5.2); ALKALINE PHOSPHATASE 102 U/L (46-116); ALT/SGPT 17 U/L (7.0-40); AST/SGOT 13 U/L (<34); BILIRUBIN,TOTAL 0.5 MG/DL (0.3-1.2); BLOOD UREA NITROGEN 17 MG/DL (9-23); CALCIUM LEVEL 8.6 MG/DL (8.3-10.6); CARBON DIOXIDE LEVEL 30 MMOL/L (20-31); CHLORIDE LEVEL 109 MMOL/L (98-107); CHOLESTEROL LEVEL 109 MG/DL (<200); CHOLESTEROL RISK RATIO 3.47 (<5); CREATININE FOR GFR 1.22 MG/DL (0.70-1.30); GLOMERULAR FILTRATION RATE > 60.0 (>49); GLUCOSE, FASTING 91 MG/DL (74-106); HDL CHOLESTEROL 31.4 MG/DL (>40); MAGNESIUM LEVEL 1.8 MG/DL (1.8-2.4); NON-HDL-C 77.6 MG/DL; POTASSIUM SERUM 4.6 MMOL/L (3.5-5.1); SODIUM LEVEL 140 MMOL/L (136-145); TOTAL PROTEIN 6.4 G/DL (5.7-8.2); TRIGLYCERIDES LEVEL 98 MG/DL (<150)
== END ==
LOC: M PLALAB 09:45
PROVIDERS: ATTEND Physician Assistant
DX: I48.0 Paroxysmal atrial fibrillation (principal); E78.00 Pure hypercholesterolemia, unspecified

== ENCOUNTER → 2023-04-21 | Outpatient (CLI) | payer OTHER | LOC: M PAIN 08:45 | PROVIDERS: ATTEND Anesthesiology | DX: M54.50 Low back pain, unspecified (principal); M79.18 Myalgia, other site; M54.2 Cervicalgia; E78.5 Hyperlipidemia, unspecified; F41.1 Generalized anxiety disorder; I25.10 Atherosclerotic heart disease of native coronary artery without angina pectoris; E03.9 Hypothyroidism, unspecified; I10 Essential (primary) hypertension; I73.9 Peripheral vascular disease, unspecified; K21.9 Gastro-esophageal reflux disease without esophagitis; F32.A Depression, unspecified; D69.6 Thrombocytopenia, unspecified; F17.210 Nicotine dependence, cigarettes, uncomplicated; Z79.01 Long term (current) use of anticoagulants; Z79.02 Long term (current) use of antithrombotics/antiplatelets; Z79.84 Long term (current) use of oral hypoglycemic drugs; Z79.890 Hormone replacement therapy; Z79.891 Long term (current) use of opiate analgesic; Z79.899 Other long term (current) drug therapy; Z88.8 Allergy status to other drugs, medicaments and biological substances ==

== ENCOUNTER → 2023-05-03 | Outpatient (CLI) | payer OTHER ==
[2023-05-03 16:24] LABS: HEMATOCRIT 43.6 % (42.0-52.0); HEMOGLOBIN 14.4 g/dl (13.5-17.5); MEAN CORPUSCULAR HEMOGLOBIN 29.6 pg (27.0-33.0); MEAN CORPUSCULAR VOLUME 89.7 fl (80.0-96.0); PLATELET COUNT, AUTOMATED 128 10^3/uL (150-450); RED BLOOD COUNT 4.86 10^6/uL (4.30-6.10); WHITE BLOOD COUNT 9.1 10^3/uL (4.0-10.0)
[2023-05-03 16:42] LABS: BLOOD UREA NITROGEN 19 MG/DL (9-23); CALCIUM LEVEL 7.9 MG/DL (8.3-10.6); CARBON DIOXIDE LEVEL 31 MMOL/L (20-31); CHLORIDE LEVEL 102 MMOL/L (98-107); CREATININE FOR GFR 1.24 MG/DL (0.70-1.30); GLOMERULAR FILTRATION RATE > 60.0 (>49); GLUCOSE, FASTING 97 MG/DL (74-106); POTASSIUM SERUM 4.1 MMOL/L (3.5-5.1); SODIUM LEVEL 134 MMOL/L (136-145)
== END ==
LOC: M PLALAB 13:30 → M PLAIMG 13:30
PROVIDERS: ATTEND Physician Assistant
DX: I48.0 Paroxysmal atrial fibrillation (principal)

== ENCOUNTER → 2023-06-11 | Outpatient (CLI) | payer OTHER, MEDICARE | LOC: M RAD 12:34 | PROVIDERS: ATTEND Physician Assistant | DX: Z12.2 Encounter for screening for malignant neoplasm of respiratory organs (principal); F17.218 Nicotine dependence, cigarettes, with other nicotine-induced disorders; R91.8 Other nonspecific abnormal finding of lung field ==

== ENCOUNTER → 2023-07-09 | Outpatient (CLI) | payer OTHER, MEDICARE | LOC: M RAD 07:59 | PROVIDERS: ATTEND Anesthesiology | DX: M54.42 Lumbago with sciatica, left side (principal) ==

== ENCOUNTER → 2023-07-15 | Outpatient (CLI) | payer OTHER ==
[~2023-07-15] MED LIST changes: +LASI20TA3 PO
== END ==
LOC: M PAIN 14:30
PROVIDERS: ATTEND Nurse Practitioner Family
DX: M51.16 Intervertebral disc disorders with radiculopathy, lumbar region (principal); G89.29 Other chronic pain; E78.5 Hyperlipidemia, unspecified; M54.2 Cervicalgia; F41.1 Generalized anxiety disorder; I25.10 Atherosclerotic heart disease of native coronary artery without angina pectoris; E03.9 Hypothyroidism, unspecified; I10 Essential (primary) hypertension; I73.9 Peripheral vascular disease, unspecified; K21.9 Gastro-esophageal reflux disease without esophagitis; R73.03 Prediabetes; J44.9 Chronic obstructive pulmonary disease, unspecified; F32.A Depression, unspecified; F17.210 Nicotine dependence, cigarettes, uncomplicated; Z79.01 Long term (current) use of anticoagulants; Z79.02 Long term (current) use of antithrombotics/antiplatelets; Z79.84 Long term (current) use of oral hypoglycemic drugs; Z79.891 Long term (current) use of opiate analgesic; Z79.899 Other long term (current) drug therapy; Z88.8 Allergy status to other drugs, medicaments and biological substances

== ENCOUNTER → 2023-07-16 | Outpatient (CLI) | payer OTHER, MEDICARE | LOC: M RAD 11:54 | PROVIDERS: ATTEND Anesthesiology | DX: M54.42 Lumbago with sciatica, left side (principal) ==

== ENCOUNTER 2023-07-19 12:18 | Emergency (ER) | payer OTHER, MEDICARE ==
[~2023-07-19] VITALS: Ht 175.3 cm; Wt 87.7 kg
[~2023-07-19 12:18] MED LIST changes: -LASI20TA3 PO
[2023-07-19 15:59] LABS: BASO % 0.3 % (0.0-1.0); EOS # 0.1 10^3/uL (0.0-0.5); EOS % 0.6 % (0.0-3.0); HEMATOCRIT 46.8 % (42.0-52.0); HEMOGLOBIN 15.2 g/dl (13.5-17.5); LYMPH % 8.2 % (24.0-44.0); MEAN CORPUSCULAR HEMOGLOBIN 29.3 pg (27.0-33.0); MEAN CORPUSCULAR HGB CONC 32.5 g/dl (32.0-36.5); MEAN CORPUSCULAR VOLUME 90.2 fl (80.0-96.0); MONO # 0.5 10^3/uL (0.0-0.8); MONO % 3.9 % (2.0-8.0); NEUTROPHILS # 10.5 10^3/uL (1.5-8.5); PLATELET COUNT, AUTOMATED 113 10^3/uL (150-450); RED BLOOD COUNT 5.19 10^6/uL (4.30-6.10); WHITE BLOOD COUNT 12.3 10^3/uL (4.0-10.0)
[2023-07-19 16:04] VITALS: TEMP 97.3; O2SAT 97
[2023-07-19 16:24] LABS: BLOOD UREA NITROGEN 22 MG/DL (9-23); CALCIUM LEVEL 9.2 MG/DL (8.3-10.6); CARBON DIOXIDE LEVEL 32 MMOL/L (20-31); CHLORIDE LEVEL 106 MMOL/L (98-107); CREATININE FOR GFR 1.17 MG/DL (0.70-1.30); GLOMERULAR FILTRATION RATE > 60.0 (>49); GLUCOSE, FASTING 115 MG/DL (74-106); POTASSIUM SERUM 4.5 MMOL/L (3.5-5.1); SODIUM LEVEL 141 MMOL/L (136-145)
[2023-07-19 20:10] VITALS: BP 188/90
[2023-07-19] MEDS: atenoloL 25 MG TAB PO ONE (20:10)
[2023-07-19] MEDS ORDERED: PILL CUTTER 1 EACH XX ONE (20:31)
[2023-07-19 21:08] VITALS: BP 180/78
[2023-07-19] MEDS ORDERED: LASI20TA3 PO (22:08)
== END 2023-07-19 22:20 | disposition home or self-care (01) ==
LOC: M ED 12:18
DX: I10 Essential (primary) hypertension (principal); R22.43 Localized swelling, mass and lump, lower limb, bilateral; J02.9 Acute pharyngitis, unspecified; F17.200 Nicotine dependence, unspecified, uncomplicated; Z79.01 Long term (current) use of anticoagulants; Z79.899 Other long term (current) drug therapy

== ENCOUNTER 2023-08-02 09:27 | Inpatient (IN) | payer OTHER, MEDICARE ==
[~2023-08-02 09:27] MED LIST changes: +LASI20TA3 PO
[2023-08-02] MEDS: ALBUTEROL SULFATE 2.5MG/0.5ML INH NEB SOLN INH ONE ×2 (10:08→13:43)
[2023-08-02] MEDS: IPRATROPIUM 0.5MG/ALBUTEROL 2.5MG INH SOL UD 3ML (DUONEB) NEB ONE ×2 (10:08→13:43)
[2023-08-02 10:25] LABS: ABG BASE EXCESS -0.3 (-2.0-2.0); ABG HCO3 23.4 MMOL/L (22.0-26.0); ABG O2 SATURATION 94.9 % (95.0-99.0); ABG PARTIAL PRESSURE CO2 35.6 mmHg (35.0-45.0); ABG PARTIAL PRESSURE O2 70.5 mmHg (75.0-100.0); ABG STANDARD HCO3 24.2 MMOL/L. (22.0-26.0); ABG TOTAL CO2 24.5 MMOL/L (23.0-31.0); ABG pH (ARTERIAL) 7.436 UNITS (7.350-7.450)
[2023-08-02] MEDS: methylPREDNISolone 125MG 2ML VIAL IV ONE (10:57)
[2023-08-02 11:16] LABS: BASO % 0.3 % (0.0-1.0); EOS # 0.1 10^3/uL (0.0-0.5); EOS % 0.4 % (0.0-3.0); HEMATOCRIT 45.5 % (42.0-52.0); HEMOGLOBIN 14.7 g/dl (13.5-17.5); LYMPH # 1.5 10^3/uL (1.5-5.0); LYMPH % 11.2 % (24.0-44.0); MEAN CORPUSCULAR HEMOGLOBIN 29.4 pg (27.0-33.0); MEAN CORPUSCULAR HGB CONC 32.3 g/dl (32.0-36.5); MONO % 7.6 % (2.0-8.0); NEUTROPHILS # 10.9 10^3/uL (1.5-8.5); NEUTROPHILS % 79.3 % (36.0-66.0); PLATELET COUNT, AUTOMATED 107 10^3/uL (150-450); WHITE BLOOD COUNT 13.7 10^3/uL (4.0-10.0)
[2023-08-02 11:28] LABS: INR 1.31; PROTHROMBIN TIME 15.9 SECONDS (12.5-14.5)
[2023-08-02 11:45] LABS: CK-MB VALUE MASS 1.5 NG/ML (<3.6)
[2023-08-02 11:49] LABS: ALBUMIN 3.1 G/DL (3.2-5.2); BILIRUBIN,DIRECT 0.4 MG/DL (<0.4); CALCIUM LEVEL 9.1 MG/DL (8.3-10.6); CREATININE FOR GFR 1.57 MG/DL (0.70-1.30); GLOMERULAR FILTRATION RATE 47.4 (>49); MB/CK RELATIVE INDEX 0.46 (< OR =4); POTASSIUM SERUM 4.3 MMOL/L (3.5-5.1); THYROXINE (T4) 5.6 UG/DL (4.5-10.9); TOTAL PROTEIN 6.2 G/DL (5.7-8.2)
[2023-08-02 11:50] LABS: THYROID STIMULATING HORMONE 5.59 uIU/ML (0.55-4.78)
[2023-08-02] MEDS: cefTRIAXone SOD 1 GM in D5W MINI-BAG PLUS 50 ML IV ONE (12:03)
[2023-08-02 13:02] LABS: CK-MB VALUE MASS 1.6 NG/ML (<3.6)
[2023-08-02 13:14] LABS: MB/CK RELATIVE INDEX 0.5 (< OR =4)
[2023-08-02] MEDS: DOXYCYCLINE HYCLATE 100 MG in D5W MINI-BAG PLUS 100 ML IV ONE (13:23)
[2023-08-02] MEDS ORDERED: ISOVUE-370 76% 100ML VIAL As Ordered ONE (14:04)
[2023-08-02 14:22] LABS: PROCALCITONIN 1.64 ng/ml
[2023-08-02] MEDS ORDERED: ALBUTEROL SULFATE 2.5MG/0.5ML INH NEB SOLN NEB PRN (14:50)
[2023-08-02] MEDS ORDERED: HEPARIN SOD (PORCINE) 5000UNITS/ML 1ML VIAL/SYRINGE SQ SCH (14:50)
[2023-08-02 15:40] LABS: INR 1.26; PARTIAL THROMBOPLASTIN TIME 31.8 SECONDS (24.8-34.2); PROTHROMBIN TIME 15.4 SECONDS (12.5-14.5)
[2023-08-02] MEDS ORDERED: VENTAER INH (15:59)
[2023-08-02] MEDS ORDERED: ELIQ5TAB PO (15:59)
[2023-08-02] MEDS: IPRATROPIUM 0.5MG/ALBUTEROL 2.5MG INH SOL UD 3ML (DUONEB) NEB SCH (16:00)
[2023-08-02] MEDS: NS 1,000 ML IV SCH (16:00)
[2023-08-02] MEDS ORDERED: FLOM0.4C39 PO (16:01)
[2023-08-02] MEDS ORDERED: DIVA500T94 PO (16:01)
[2023-08-02] MEDS ORDERED: SPIR1CAP INH (16:03)
[2023-08-02 16:05] VITALS: BP 123/63; TEMP 97.2; O2SAT 91
[2023-08-02] MEDS ORDERED: HOME MED LIST COMPLETE! XX SCH (16:05)
[2023-08-02] MEDS: PANTOPRAZOLE 40MG TAB (PROTONIX) PO SCH (16:19)
[2023-08-02] MEDS: NICOTINE 21MG/24HR 1 EA TRANSDERMAL TD SCH (16:19)
[2023-08-02] MEDS: LevoFLOXacin 750 MG TABLET PO SCH (18:44)
[2023-08-02 19:20] VITALS: BP 122/65; TEMP 97.5; O2SAT 91
[2023-08-02] MEDS: APIXABAN 5 MG TAB (ELIQUIS) PO SCH (20:16)
[2023-08-02] MEDS: guaiFENesin ER TABLET 600 MG TAB PO SCH (20:16)
[2023-08-02] MEDS: methylPREDNISolone 125MG 2ML VIAL IV SCH (20:16)
[2023-08-02] MEDS: TAMSULOSIN 0.4 MG CAP PO SCH (20:16)
[2023-08-02] MEDS ORDERED: DOXYCYCLINE HYCLATE 100MG TABLET PO SCH (21:00)
[2023-08-02 22:53] VITALS: BP 136/71; TEMP 96.6; O2SAT 93
[2023-08-03] MEDS: NS 300 ML IV SCH (01:20)
[2023-08-03 03:55] VITALS: TEMP 97.2
[2023-08-03 04:00] VITALS: BP 96/49; O2SAT 96
[2023-08-03 06:04] LABS: HEMATOCRIT 39.6 % (42.0-52.0); MEAN CORPUSCULAR HGB CONC 32.8 g/dl (32.0-36.5); MEAN CORPUSCULAR VOLUME 88.4 fl (80.0-96.0); PLATELET COUNT, AUTOMATED 107 10^3/uL (150-450); RED BLOOD COUNT 4.48 10^6/uL (4.30-6.10); WHITE BLOOD COUNT 11.3 10^3/uL (4.0-10.0)
[2023-08-03 06:29] LABS: ALBUMIN 2.7 G/DL (3.2-5.2); BILIRUBIN,TOTAL 0.5 MG/DL (0.3-1.2); CALCIUM LEVEL 8.8 MG/DL (8.3-10.6); CREATININE FOR GFR 1.38 MG/DL (0.70-1.30); GLOMERULAR FILTRATION RATE 55.1 (>49); POTASSIUM SERUM 4.5 MMOL/L (3.5-5.1); TOTAL PROTEIN 5.5 G/DL (5.7-8.2)
[2023-08-03] MEDS: TIOTROPIUM INHALER/CAPSULE (SPIRIVA) INH SCH (08:33)
[2023-08-03] MEDS: DIVALPROEX 500 MG TAB PO SCH (08:42)
[2023-08-03] MEDS: cefTRIAXone SOD 1 GM in D5W MINI-BAG PLUS 50 ML IV SCH (11:32)
[2023-08-03 12:00] VITALS: BP 128/57; TEMP 97.7; O2SAT 97
[2023-08-03 20:12] VITALS: BP 121/65; TEMP 97.9; O2SAT 97
[2023-08-03 21:00] VITALS: O2SAT 93
[2023-08-03] MEDS: ACETAMINOPHEN TAB 650MG DOSE (2X325MG) PO PRN (23:53)
[2023-08-03 23:58] VITALS: O2SAT 92
[2023-08-04 04:25] VITALS: BP 132/70; TEMP 97.9; O2SAT 91
[2023-08-04 07:31] VITALS: O2SAT 90
[2023-08-04 08:09] LABS: HEMATOCRIT 41.9 % (42.0-52.0); HEMOGLOBIN 13.7 g/dl (13.5-17.5); MEAN CORPUSCULAR HEMOGLOBIN 29.2 pg (27.0-33.0); MEAN CORPUSCULAR HGB CONC 32.7 g/dl (32.0-36.5); MEAN CORPUSCULAR VOLUME 89.3 fl (80.0-96.0); PLATELET COUNT, AUTOMATED 130 10^3/uL (150-450); RED BLOOD COUNT 4.69 10^6/uL (4.30-6.10); WHITE BLOOD COUNT 11.4 10^3/uL (4.0-10.0)
[2023-08-04 08:44] LABS: BILIRUBIN,TOTAL 0.3 MG/DL (0.3-1.2); CALCIUM LEVEL 8.9 MG/DL (8.3-10.6); CREATININE FOR GFR 1.32 MG/DL (0.70-1.30); GLOMERULAR FILTRATION RATE 57.9 (>49); POTASSIUM SERUM 4.5 MMOL/L (3.5-5.1); TOTAL PROTEIN 6.2 G/DL (5.7-8.2)
[2023-08-04] MEDS ORDERED: MUCI600T31 PO (11:03)
[2023-08-04] MEDS ORDERED: LEVO1TAB40 PO (11:03)
[2023-08-04] MEDS ORDERED: PRED10TA2 PO (11:03)
[2023-08-04] MEDS ORDERED: PANT40TA29 PO (11:03)
== END 2023-08-04 12:31 | disposition home or self-care (01) | DRG 189 ==
LOC: M ED 09:27 → EDBD 09:27 → M ED INP 14:49 → M MSPAV 16:09
PROVIDERS: ADMIT Internal Medicine; ATTEND Internal Medicine Nephrology
DX: J96.01 Acute respiratory failure with hypoxia (principal); J18.9 Pneumonia, unspecified organism; N17.9 Acute kidney failure, unspecified; J44.0 Chronic obstructive pulmonary disease with (acute) lower respiratory infection; J44.1 Chronic obstructive pulmonary disease with (acute) exacerbation; E78.5 Hyperlipidemia, unspecified; F41.9 Anxiety disorder, unspecified; M54.50 Low back pain, unspecified; I25.10 Atherosclerotic heart disease of native coronary artery without angina pectoris; N52.9 Male erectile dysfunction, unspecified; N18.30 Chronic kidney disease, stage 3 unspecified; G47.33 Obstructive sleep apnea (adult) (pediatric); N40.0 Benign prostatic hyperplasia without lower urinary tract symptoms; E03.9 Hypothyroidism, unspecified; I12.9 Hypertensive chronic kidney disease with stage 1 through stage 4 chronic kidney disease, or unspecified chronic kidney disease; I48.0 Paroxysmal atrial fibrillation; I73.9 Peripheral vascular disease, unspecified; K21.9 Gastro-esophageal reflux disease without esophagitis; F32.A Depression, unspecified; F17.210 Nicotine dependence, cigarettes, uncomplicated; Z79.01 Long term (current) use of anticoagulants; Z79.2 Long term (current) use of antibiotics; Z79.899 Other long term (current) drug therapy; Z11.52 Encounter for screening for COVID-19; Z95.5 Presence of coronary angioplasty implant and graft; Z98.49 Cataract extraction status, unspecified eye; Z90.5 Acquired absence of kidney; E11.22 Type 2 diabetes mellitus with diabetic chronic kidney disease; E11.51 Type 2 diabetes mellitus with diabetic peripheral angiopathy without gangrene

== ENCOUNTER → 2023-09-13 | Outpatient (CLI) | payer OTHER ==
[~2023-09-13] MED LIST changes: +DIVA500T94 PO; +LEVO1TAB40 PO; +MUCI600T31 PO; +PANT40TA29 PO; +VENTAER INH
== END ==
LOC: M PLAIMG 12:57
PROVIDERS: ATTEND Physician Assistant
DX: R91.8 Other nonspecific abnormal finding of lung field (principal)

== ENCOUNTER → 2023-09-22 | Outpatient (REF) | payer OTHER ==
[2023-09-22 19:11] LABS: IMMUNOGLOBULIN A 187.6 MG/DL (40-350); IMMUNOGLOBULIN G 933 MG/DL (650-1600)
== END ==
LOC: M LAB REF 17:16
PROVIDERS: ATTEND Internal Medicine Pulmonary Disease
DX: R91.8 Other nonspecific abnormal finding of lung field (principal)

== ENCOUNTER → 2023-10-19 | Outpatient (CLI) | payer OTHER ==
[~2023-10-19] MED LIST changes: +FURO20TA2
== END ==
LOC: M RAD 12:41
PROVIDERS: ATTEND Internal Medicine Pulmonary Disease
DX: R91.8 Other nonspecific abnormal finding of lung field (principal)

== ENCOUNTER → 2023-11-04 | Outpatient (CLI) | payer OTHER | LOC: M PAIN 15:30 | PROVIDERS: ATTEND Nurse Practitioner Family | DX: M51.16 Intervertebral disc disorders with radiculopathy, lumbar region (principal); G89.29 Other chronic pain; M54.2 Cervicalgia; E78.5 Hyperlipidemia, unspecified; F41.1 Generalized anxiety disorder; E03.9 Hypothyroidism, unspecified; D69.6 Thrombocytopenia, unspecified; K21.9 Gastro-esophageal reflux disease without esophagitis; I10 Essential (primary) hypertension; E64.9 Sequelae of unspecified nutritional deficiency; F32.A Depression, unspecified; J44.9 Chronic obstructive pulmonary disease, unspecified; F17.210 Nicotine dependence, cigarettes, uncomplicated; Z79.02 Long term (current) use of antithrombotics/antiplatelets; Z79.01 Long term (current) use of anticoagulants; Z79.891 Long term (current) use of opiate analgesic; Z79.890 Hormone replacement therapy; Z79.899 Other long term (current) drug therapy; Z88.8 Allergy status to other drugs, medicaments and biological substances ==

== ENCOUNTER → 2023-11-08 | Outpatient (CLI) | payer OTHER, MEDICARE ==
[2023-11-08 12:08] LABS: HEMATOCRIT 45.4 % (42.0-52.0); HEMOGLOBIN 14.8 g/dl (13.5-17.5); MEAN CORPUSCULAR HEMOGLOBIN 29.6 pg (27.0-33.0); MEAN CORPUSCULAR HGB CONC 32.6 g/dl (32.0-36.5); MEAN CORPUSCULAR VOLUME 90.8 fl (80.0-96.0); PLATELET COUNT, AUTOMATED 148 10^3/uL (150-450); WHITE BLOOD COUNT 6.3 10^3/uL (4.0-10.0)
== END ==
LOC: M LAB 11:22
PROVIDERS: ATTEND Nurse Practitioner Family
DX: M51.16 Intervertebral disc disorders with radiculopathy, lumbar region (principal)

== ENCOUNTER → 2023-11-25 | Outpatient (CLI) | payer OTHER, MEDICAID ==
[2023-11-25 16:05] LABS: ALBUMIN 3.5 G/DL (3.2-5.2); BILIRUBIN,TOTAL 0.4 MG/DL (0.3-1.2); CALCIUM LEVEL 9.1 MG/DL (8.3-10.6); CREATININE FOR GFR 1.3 MG/DL (0.70-1.30); POTASSIUM SERUM 4.2 MMOL/L (3.5-5.1); TOTAL PROTEIN 6.5 G/DL (5.7-8.2)
== END ==
LOC: M PLALAB 12:12
PROVIDERS: ATTEND Family Medicine
DX: E11.9 Type 2 diabetes mellitus without complications (principal)

== ENCOUNTER → 2024-02-16 | Outpatient (CLI) | payer OTHER, MEDICAID | LOC: M RAD 12:22 | PROVIDERS: ATTEND Internal Medicine Pulmonary Disease | DX: R93.1 Abnormal findings on diagnostic imaging of heart and coronary circulation (principal) ==

== ENCOUNTER → 2024-05-02 | Outpatient (CLI) | payer MEDICARE, OTHER ==
[2024-05-02 15:16] LABS: ALBUMIN 3.6 G/DL (3.2-5.2); BILIRUBIN,TOTAL 0.5 MG/DL (0.3-1.2); CALCIUM LEVEL 8.7 MG/DL (8.3-10.6); CREATININE FOR GFR 1.39 MG/DL (0.70-1.30); GLOMERULAR FILTRATION RATE 54.6 (>49); POTASSIUM SERUM 4.2 MMOL/L (3.5-5.1); TOTAL PROTEIN 6.4 G/DL (5.7-8.2)
[2024-05-02 15:31] LABS: HEMOGLOBIN A1c 5.2 % (4.0-6.0)
== END ==
LOC: M PLALAB 11:21
PROVIDERS: ATTEND Family Medicine
DX: E11.22 Type 2 diabetes mellitus with diabetic chronic kidney disease (principal)

== ENCOUNTER → 2024-06-01 | Outpatient (CLI) | payer MEDICAID, MEDICARE, OTHER | LOC: M PLARAD 08:19 | PROVIDERS: ATTEND Pain Medicine Interventional Pain Medicine | DX: M54.12 Radiculopathy, cervical region (principal); M43.12 Spondylolisthesis, cervical region ==

== ENCOUNTER → 2024-10-10 | Outpatient (CLI) | payer MEDICARE, OTHER ==
[~2024-10-10] MED LIST changes: +ACET-1592 PO; -ACET1TAB37 PO; +DIVA-41 PO; -DIVA500T94 PO; -FLOM0.4C39 PO; +TAMS-18 PO
[2024-10-10 17:22] LABS: ALT/SGPT 25.0 U/L (7.0-40); AST/SGOT 30.0 U/L (<34); CALCIUM LEVEL 8.8 MG/DL (8.3-10.6); CARBON DIOXIDE LEVEL 28.0 MMOL/L (20-31); CHLORIDE LEVEL 112.0 MMOL/L (98-107); CREATININE FOR GFR 1.45 MG/DL (0.70-1.30); GLOMERULAR FILTRATION RATE 53.2 (>49); POTASSIUM SERUM 4.4 MMOL/L (3.5-5.1); SODIUM LEVEL 147.0 MMOL/L (136-145)
[2024-10-10 18:48] LABS: ESTIMATED AVERAGE GLUCOSE 108.0 MG/DL (60-110)
== END ==
LOC: M PLALAB 14:59
PROVIDERS: ATTEND Family Medicine
DX: E11.22 Type 2 diabetes mellitus with diabetic chronic kidney disease (principal); N18.31 Chronic kidney disease, stage 3a

== ENCOUNTER → 2024-12-01 | Outpatient (CLI) | payer MEDICAID, MEDICARE, OTHER ==
[~2024-12-01] MED LIST changes: +AMIT25TA19; +ATEN25TA; +BUDE10.32; +SEMA1PEN2
== END ==
LOC: M PLAIMG 12:54
PROVIDERS: ATTEND Internal Medicine Pulmonary Disease
DX: R91.8 Other nonspecific abnormal finding of lung field (principal); J43.2 Centrilobular emphysema

== ENCOUNTER 2025-02-21 11:57 | Inpatient (IN) | payer OTHER, MEDICARE ==
[~2025-02-21] VITALS: Ht 175.3 cm; Wt 88.3 kg
[~2025-02-21 11:57] MED LIST changes: +AMIT75TA PO; +AMLO25TA PO; -ATEN25TA; +ATEN25TA PO; +ATOR80TA59 PO; -BUDE10.32; +BUDE10.32 INH; +CLOP75TA2 PO; +DULO1CAP6 PO; -FURO20TA2; +FURO20TA2 PO; +GABA-284 PO; +GUAI400T9 PO; +HYDR-3713 PO; +LEVO125T4 PO; +LISI40TA10 PO; +MAGN400T2 PO; +MONT10TA97 PO; +SITA50TAB PO; +TIZA2CAP PO; +VITA100T98 PO
[2025-02-21 13:09] LABS: VENOUS BASE EXCESS -1.5 (-2.0-2.0); VENOUS HCO3 25.7 MMOL/L (23.0-27.0); VENOUS O2 SATURATION 59.2 % (60.0-80.0); VENOUS PARTIAL PRESSURE CO2 52.4 mmHg (38.0-50.0); VENOUS PARTIAL PRESSURE O2 32.0 mmHg (30.0-50.0); VENOUS PH 7.308 UNITS (7.330-7.430); VENOUS STANDARD HCO3 22.3 MMOL/L; VENOUS TOTAL CO2 27.3 MMOL/L (24.0-28.0)
[2025-02-21 13:11] LABS: BASO # 0.0 10^3/uL (0.0-0.2); BASO % 0.2 % (0.0-1.0); EOS # 0.1 10^3/uL (0.0-0.5); EOS % 0.4 % (0.0-3.0); LYMPH # 1.2 10^3/uL (1.5-5.0); LYMPH % 10.4 % (24.0-44.0); MONO # 0.8 10^3/uL (0.0-0.8); MONO % 7.5 % (2.0-8.0); NEUTROPHILS # 9.0 10^3/uL (1.5-8.5); NEUTROPHILS % 80.6 % (36.0-66.0); PLATELET COUNT, AUTOMATED 153 10^3/uL (150-450)
[2025-02-21 13:16] LABS: INR 1.31
[2025-02-21 13:20] LABS: ALT/SGPT 18.0 U/L (7.0-40); AST/SGOT 21.0 U/L (<34); CALCIUM LEVEL 8.7 MG/DL (8.3-10.6); CARBON DIOXIDE LEVEL 29.0 MMOL/L (20-31); CHLORIDE LEVEL 104.0 MMOL/L (98-107); CREATININE FOR GFR 1.63 MG/DL (0.70-1.30); GLOMERULAR FILTRATION RATE 46.2 (>49); POTASSIUM SERUM 4.6 MMOL/L (3.5-5.1); SODIUM LEVEL 137.0 MMOL/L (136-145)
[2025-02-21 13:22] LABS: THYROXINE (T4) 6.7 UG/DL (4.5-10.9)
[2025-02-21] MEDS: NS (Normal Saline) 0.9% 1,000 ML IV ONE (13:27)
[2025-02-21] MEDS: IPRATROPIUM 0.5 MG/ALBUTEROL 2.5 MG INH SOL UD 3 ML NEB PRN (13:35)
[2025-02-21] MEDS: DOXYCYCLINE HYCLATE 100 MG TABLET PO ONE (14:23)
[2025-02-21] MEDS: cefTRIAXone SOD 1 GM in DEXTROSE 5% (D5W) ADV/MINI-BAG 50 ML IV ONE (14:23)
[2025-02-21] MEDS ORDERED: LIDO1PAD TOP (15:10)
[2025-02-21] MEDS ORDERED: ALBU2.5V10 INH (15:10)
[2025-02-21] MEDS ORDERED: TAMS1CAP17 PO (15:10)
[2025-02-21] MEDS ORDERED: FLUT15.820 NARES (15:10)
[2025-02-21] MEDS ORDERED: [UNRECOGNIZED DRUG - CODE] PO (15:10)
[2025-02-21] MEDS ORDERED: SPIR12.9 INH (15:42)
[2025-02-21 16:30] VITALS: BP 128/62; TEMP 97.4; O2SAT 94
[2025-02-21] MEDS ORDERED: HOME MED LIST COMPLETE! XX SCH (17:10)
[2025-02-21] MEDS ORDERED: ALBUTEROL 90 MCG/ACT 8 GM HFA INHALER INH PRN (17:15)
[2025-02-21] MEDS ORDERED: PILL CUTTER 1 EACH XX PRN (17:30)
[2025-02-21] MEDS: ONDANSETRON 4MG/2ML VIAL IV PRN (17:37)
[2025-02-21] MEDS: BUDESONIDE 0.25 MG/2 ML INHALATION SUSPENSION INH SCH (20:00)
[2025-02-21] MEDS: GABAPENTIN 400 MG CAP PO SCH (21:00)
[2025-02-21] MEDS: DOXYCYCLINE HYCLATE 100 MG TABLET PO SCH (21:01)
[2025-02-21] MEDS: TAMSULOSIN 0.4 MG CAP PO SCH (21:01)
[2025-02-21] MEDS: MAGNESIUM OXIDE 400 MG TAB PO SCH (21:01)
[2025-02-21] MEDS: APIXABAN 5 MG TAB PO SCH (21:01)
[2025-02-21 21:09] VITALS: BP 102/50; TEMP 97.3; O2SAT 94
[2025-02-22 05:06] VITALS: BP 100/58; TEMP 97.2; O2SAT 90
[2025-02-22] MEDS: LEVOTHYROXINE 125 MCG TABLET (0.125 MG) PO SCH (06:31)
[2025-02-22 07:13] LABS: BASO # 0.0 10^3/uL (0.0-0.2); BASO % 0.1 % (0.0-1.0); EOS # 0.0 10^3/uL (0.0-0.5); EOS % 0.0 % (0.0-3.0); LYMPH # 0.7 10^3/uL (1.5-5.0); LYMPH % 6.7 % (24.0-44.0); MONO # 0.5 10^3/uL (0.0-0.8); MONO % 4.5 % (2.0-8.0); NEUTROPHILS # 9.3 10^3/uL (1.5-8.5); NEUTROPHILS % 87.8 % (36.0-66.0); PLATELET COUNT, AUTOMATED 145 10^3/uL (150-450)
[2025-02-22 08:00] LABS: C REACTIVE PROTEIN QUANTITATIV 19.19 MG/DL (<1.0); CALCIUM LEVEL 8.2 MG/DL (8.3-10.6); CARBON DIOXIDE LEVEL 28.0 MMOL/L (20-31); CHLORIDE LEVEL 107.0 MMOL/L (98-107); CREATININE FOR GFR 1.89 MG/DL (0.70-1.30); GLOMERULAR FILTRATION RATE 38.7 (>49); MAGNESIUM LEVEL 2.0 MG/DL (1.8-2.4); POTASSIUM SERUM 5.8 MMOL/L (3.5-5.1); SODIUM LEVEL 138.0 MMOL/L (136-145)
[2025-02-22] MEDS: TIOTROPIUM BROM 2.5MCG/ACTUATION 4GM INH INH SCH (08:14)
[2025-02-22] MEDS: ATORVASTATIN 20 MG TAB PO SCH (08:28)
[2025-02-22] MEDS: PANTOPRAZOLE 40MG TAB PO SCH (08:28)
[2025-02-22] MEDS: CLOPIDOGREL 75 MG TAB PO SCH (08:28)
[2025-02-22] MEDS: NICOTINE 21 MG/24 HR 1 EA TRANSDERMAL TD SCH (08:29)
[2025-02-22] MEDS: LIDOCAINE 5% PATCH TOP SCH (08:30)
[2025-02-22] MEDS: NS (Normal Saline) 0.9% 1,000 ML IV SCH (09:45)
[2025-02-22 09:48] VITALS: O2SAT 84
[2025-02-22 09:49] VITALS: O2SAT 82
[2025-02-22 09:50] VITALS: O2SAT 90
[2025-02-22] MEDS ORDERED: DEXTROSE 50% 50 ML SYRINGE IV PRN (10:20)
[2025-02-22] MEDS ORDERED: GLUCOSE 4 GM CHEW PO PRN (10:20)
[2025-02-22] MEDS ORDERED: GLUCAGON INJ 1 MG VIAL SC PRN (10:20)
[2025-02-22] MEDS: INSULIN LISPRO (NovoLOG) PER UNIT SC SCH (10:56)
[2025-02-22] MEDS: CALCIUM GLUCONATE 1,000 MG in DEXTROSE 5% (D5W) MINI-BAG PLU 100 ML IV ONE (10:59)
[2025-02-22 11:50] VITALS: BP 118/57; TEMP 98.3; O2SAT 91
[2025-02-22] MEDS: cefTRIAXone SOD 1 GM in DEXTROSE 5% (D5W) ADV/MINI-BAG 50 ML IV SCH (13:01)
[2025-02-22 19:49] VITALS: BP 135/63; TEMP 99.3; O2SAT 94
[2025-02-23] MEDS: ALBUTEROL SULFATE 2.5 MG/0.5 ML INH CONCENTRATE NEB SOLN NEB PRN (00:37)
[2025-02-23 04:25] VITALS: BP 130/67; TEMP 98.4; O2SAT 94
[2025-02-23 06:30] LABS: BASO # 0.0 10^3/uL (0.0-0.2); BASO % 0.1 % (0.0-1.0); EOS # 0.0 10^3/uL (0.0-0.5); EOS % 0.1 % (0.0-3.0); LYMPH # 1.3 10^3/uL (1.5-5.0); LYMPH % 12.2 % (24.0-44.0); MONO # 0.6 10^3/uL (0.0-0.8); MONO % 6.3 % (2.0-8.0); NEUTROPHILS # 8.2 10^3/uL (1.5-8.5); NEUTROPHILS % 79.6 % (36.0-66.0); PLATELET COUNT, AUTOMATED 159 10^3/uL (150-450)
[2025-02-23 07:01] LABS: CALCIUM LEVEL 8.2 MG/DL (8.3-10.6); CARBON DIOXIDE LEVEL 27.0 MMOL/L (20-31); CHLORIDE LEVEL 111.0 MMOL/L (98-107); CREATININE FOR GFR 1.46 MG/DL (0.70-1.30); GLOMERULAR FILTRATION RATE 52.7 (>49); POTASSIUM SERUM 4.9 MMOL/L (3.5-5.1); SODIUM LEVEL 140.0 MMOL/L (136-145)
[2025-02-23 12:00] VITALS: TEMP 98.5; O2SAT 89
[2025-02-23 20:45] VITALS: BP 152/73; TEMP 98.6; O2SAT 91
[2025-02-24 04:18] VITALS: BP 157/71; TEMP 98.4; O2SAT 91
[2025-02-24 06:51] LABS: BASO # 0.0 10^3/uL (0.0-0.2); BASO % 0.5 % (0.0-1.0); EOS # 0.1 10^3/uL (0.0-0.5); EOS % 2.2 % (0.0-3.0); LYMPH # 1.4 10^3/uL (1.5-5.0); LYMPH % 22.9 % (24.0-44.0); MONO # 0.7 10^3/uL (0.0-0.8); MONO % 11.1 % (2.0-8.0); NEUTROPHILS # 3.7 10^3/uL (1.5-8.5); NEUTROPHILS % 58.5 % (36.0-66.0); PLATELET COUNT, AUTOMATED 183 10^3/uL (150-450)
[2025-02-24 07:17] LABS: CALCIUM LEVEL 8.9 MG/DL (8.3-10.6); CARBON DIOXIDE LEVEL 28.0 MMOL/L (20-31); CHLORIDE LEVEL 110.0 MMOL/L (98-107); CREATININE FOR GFR 1.36 MG/DL (0.70-1.30); GLOMERULAR FILTRATION RATE 57.4 (>49); POTASSIUM SERUM 4.8 MMOL/L (3.5-5.1); SODIUM LEVEL 142.0 MMOL/L (136-145)
[2025-02-24 10:25] VITALS: BP 166/82; TEMP 97.3; O2SAT 90
[2025-02-24] MEDS ORDERED: DOXY100T PO (10:27)
[2025-02-24] MEDS ORDERED: AMOX875T2 PO (10:27)
[2025-02-24 11:36] VITALS: BP 163/89; TEMP 98.7; O2SAT 92
[2025-02-24 11:37] VITALS: BP 163/89
[2025-02-24] MEDS: cefTRIAXone SOD 1 GM in DEXTROSE 5% (D5W) ADV/MINI-BAG 50 ML IV SCH (11:38)
== END 2025-02-24 14:22 | disposition home or self-care (01) | DRG 194 ==
LOC: M ED 11:57 → M ED INP 15:15 → M MSPAV 16:22
PROVIDERS: ADMIT Student in an Organized Health Care Education/Training Program; ATTEND Student in an Organized Health Care Education/Training Program
DX: J18.9 Pneumonia, unspecified organism (principal); J44.0 Chronic obstructive pulmonary disease with (acute) lower respiratory infection; I12.9 Hypertensive chronic kidney disease with stage 1 through stage 4 chronic kidney disease, or unspecified chronic kidney disease; E11.22 Type 2 diabetes mellitus with diabetic chronic kidney disease; E11.51 Type 2 diabetes mellitus with diabetic peripheral angiopathy without gangrene; E11.40 Type 2 diabetes mellitus with diabetic neuropathy, unspecified; N18.30 Chronic kidney disease, stage 3 unspecified; I48.0 Paroxysmal atrial fibrillation; I25.10 Atherosclerotic heart disease of native coronary artery without angina pectoris; E78.5 Hyperlipidemia, unspecified; G89.29 Other chronic pain; N40.0 Benign prostatic hyperplasia without lower urinary tract symptoms; Z90.5 Acquired absence of kidney; Z95.820 Peripheral vascular angioplasty status with implants and grafts; Z98.41 Cataract extraction status, right eye; Z98.42 Cataract extraction status, left eye; F17.200 Nicotine dependence, unspecified, uncomplicated; Z95.5 Presence of coronary angioplasty implant and graft; Z79.01 Long term (current) use of anticoagulants; Z79.899 Other long term (current) drug therapy; Z79.890 Hormone replacement therapy